=== PATIENT | male | born 1955 | race Caucasian/White ===

== ENCOUNTER → 2019-03-03 11:19 | Outpatient (CLI) | payer MEDICARE ==
--- NOTE | 2019-03-04 15:34 | ST ---
PATIENT:NICOLÁS LACY MEDICAL RECORD: [id number] SEX: M LOCATION:[facility] ORDER #: ADMISSION DATE: 03/03/19 AGE OF PATIENT: 64 REFERRING PHYSICIAN: INTERPRETING PHYSICIAN: ADEOLA LAWRENCE MD DATE OF SERVICE: 03/03/2019 PROCEDURE: Nuclear stress test. INDICATIONS: Angina, shortness of breath, hypertension, diabetes. He was exercised on standard Lexiscan protocol with 28 mCi of sestamibi injected at peak stress, 9 mCi used previously for rest images. FINDINGS: Gated SPECT reveals a preserved ejection fraction of 61%. However, there is decreased thickening and brightening throughout the inferior segments. SPECT imaging: Cardiolite was used as myocardial perfusion agent. There is a fixed perfusion defect inferiorly compatible with previous inferior myocardial infarction. No evidence of reversible ischemia. The remaining segments are with homogeneous uptake at rest and stress. OVERALL IMPRESSION: This is an abnormal, but stable nuclear stress test showing only a previous inferior myocardial infarction, no ongoing ischemia. Gated SPECT reveals preserved ejection fraction at 61%. In this patient with ongoing symptomatology, the current scan does suggest the presence of hemodynamically significant coronary artery disease. Standard medical management and treatment of the coronary artery disease with cardiac risk factors. If symptomatology continues, we will proceed with coronary angiography. TRANSINT:[id number] Voice Confirmation ID: [id number] DOCUMENT ID: [id number] ADEOLA LAWRENCE MD at 1534 CC: CHARLEE VILLEDA [id number] DICTATION DATE: 03/03/19 2145 WET SUIT GLUER: 03/04/19 0111 DEP CLI 03/03/19 [facility] [address] [place] [address]
== END | disposition home or self-care (01) ==
LOC: D.HCCECHO 11:19 → D.HCCARDIO 11:30
PROVIDERS: ATTEND Internal Medicine Interventional Cardiology
DX: I20.9 Angina pectoris, unspecified (principal)

== ENCOUNTER 2019-03-21 11:16 | Outpatient (CLI) | payer MEDICARE ==
[~2019-03-21] VITALS: Ht 180.3 cm; Wt 75.0 kg
--- NOTE | ~2019-03-21 | HEMODYNAMI ---
PATIENT:NICOLÁS LACY MEDICAL RECORD: [id number] : 51 LOCATION:[facility] ADMISSION DATE: 03/21/19 Generatedon:03/21/201916:14 Patient name: NICOLÁS LACY Patient #: [id number] SSN: [id number] : 1955 Date of study: 03/21/2019 Page: Of Hemodynamic Procedure Report Patient Data Patient Demographics Procedure consent was obtained First Name: NICOLÁS Gender: Male Last Name: BAMBI : 1955 Patient #: [id number] Age: 64 year(s) Race: SSN: [id number] Additional ID: [id number] Contact details [address]: [address] [place] [address] State: [place] City: [place] Zip code: [address] Past Medical History Allergies Allergen Reaction Date Comments Reported Other allergy 03/21/2019 celecoxib(from celebrex) Admission Admission Data Admission Date: 03/21/2019 Admission Time: 11:16 Arrival Date: 03/21/2019 Arrival Time: 13:30 Admit Source: Other Insurance Payor: Medicare Room #: AnaCL06 [facility] #: [id number] Height (in.): 70.87 BSA: 1.94 (m2) Height (cm.): 180 BMI: 23.15 (kg/m2) Weight (lbs.): 165.35 Weight (kg.): 75 Lab Results Lab Result Date: 03/21/2019 Lab Result Time: 0:00 Biochemistry Name Units Result Min Max BUN mg/dl 15 --(--*-)-- 7 18 Creatinine mg/dl 1 --(--*-)-- 0.6 1.3 eGFR ml/min 79.29281 *-(----)-- 90 120 NONAFRICAN CBC Name Units Result Min Max Hemoglobin g/dl 17 --(---*)-- 13.5 17.5 Procedure Procedure Types Cath Procedure Diagnostic Procedure [facility] w/Coronaries Sedation Charges Moderate Sedation up to 15 minutes Procedure Description Procedure Date Procedure Date: 03/21/2019 Procedure Start Time: 15:54 Procedure End Time: 16:07 Procedure Staff Name Function Елена Malik RT Scrub Castillo Hewitt MD Performing Physician Moni Quinones RT Monitor Maribel Hall RT Monitor Chava Membreno RN Nurse Indication Angina Procedure Data Cath Procedure Fluoroscopy Diagnostic fluoroscopy Total fluoroscopy Time: 1.5 time: 1.5 min min Diagnostic fluoroscopy Total fluoroscopy dose: 421 dose: 421 mGy mGy Contrast Material Contrast Material Type Amount (ml) Isovue 300 57 Entry Location Entry Primary Successful Side Size Upsize Upsize Entry Closure Hernández ccessful Closure Location (Fr) 1 (Fr) 2 (Fr) Remarks Device Remarks Radial Right 6 Fr Mechanical artery Short Compression Estimated blood loss: 5 ml Diagnostic catheters Device Type Used For End Catheter Placement DIAGNOSTIC Phani 110cm Procedure 5Fr catheter ([id number]) Procedure Complications No complications Procedure Medications Medication Administration Route Dosage 0.9% NaCl I.V. 100 ml/hr Oxygen etCO2 Nasal cannula 2 l/min Heparin Flush Bag added to field 2 bags (1000units/500ml NS) Lidocaine 2% added to field 20 Radial Cocktail added to field 1 syringe (Verapamil 2mg/Nitro 400mcg/Heparin 1500units) Versed I.V. 2 mg Fentanyl I.V. 100 mcg Radial Cocktail I.A. 1 syringe (Verapamil 2mg/Nitro 400mcg/Heparin 1500units) Hemodynamics Rest BSA: 1.94 (m2) HGB: 17 (g/dl) O2 Consumption: Estimated: 231.64 (ml/min) O2 Cons umption indexed: Estimated:119.4 (ml/min/m) Heart Rate: 78 (bpm) Pressure Samples Time Site Value (mmHg) Purpose Heart Use Rate(bpm) 15:56 LV 155/-8,12 Snapshot 78 Gradients Valve Time Site Site Mean SEP/DFP Peak To Heart Use 1 2 (mmHg) (sec/min) Peak Rate (mmHg) (bpm) Aortic 15:56 LV AO 92 Snapshots Pre Cath Intra NCS Post Cath Vital Signs Time Heart Resp SPO2 etCO2 NIBP (mmHg) Rhythm Pain Sedation Rate (ipm) (%) (mmHg) Status Level (bpm) 15:45:35 67 20 94 19.5 179/91(148) NSR 0 (11) 10(A) , No pain 15:50:00 65 17 93 15 174/75(141) NSR 0 (11) 10(A) , No pain 15:54:20 67 17 94 28.5 169/87(137) NSR 0 (11) 10(A) , No pain 15:58:42 67 15 91 21 155/72(111) NSR 0 (11) 9(A) , No pain 16:02:58 69 15 90 30 156/75(111) NSR 0 (11) 10(A) , No pain 16:07:14 68 15 91 29.2 156/76(125) NSR 0 (11) 10(A) , No pain Medications Time Medication Route Dose Verified Delivered Reason Notes Effectiveness by by 15:43:32 0.9% NaCl I.V. 100 Chava Chava Per ml/hr Haseeb Membreno physician RN RN 15:43:42 Oxygen etCO2 2 l/min Chava Chava for low 02 Nasal Lorigan Lorigan sats cannula RN RN 15:44:03 Heparin Flush added 2 bags Chava Chava used for Bag to Lorigan Lorsteven procedure (1000units/500ml field ANGELES RN NS) 15:44:13 Lidocaine 2% added 20ml Chava Chava for local to vial Lorigan Lorigan anesthetic field ANGELES RN 15:44:24 Radial Cocktail added 1 Chava Chava used for (Verapamil to syringe Lorigan Lorigan procedure 2mg/Nitro field ANGELES RN 400mcg/Hepari 15:52:48 Versed I.V. 2 mg Chava Chava for sedation Haseeb Membreno RN RN 15:52:56 Fentanyl I.V. 100 mcg Chava Chava for sedation Haseeb Membreno RN RN 15:55:27 Radial Cocktail I.A. 1 Chava Castillo for (Verapamil syringe Haseeb Hewitt MD vasodilation 2mg/Nitro RN 400mcg/Hepari Procedure Log Time Note 15:33:40 Diagnostic Cath Status : Elective 15:34:31 Indication : Angina 15:34:46 Chava Membreno RN sent for patient. Start room use. 15:34:49 Time tracking: Regular hours (M-F 7:00 - 5:00) 15:34:57 Plan of Care:Hemodynamics will remain stable., Cardiac rhythm will remain stable., Comfort level will be maintained., Respiratory function will remain adequate., Patient/ family verbilizes understanding of procedure., Procedure tolerated without complication., Recovers from procedure without complications.. 15:35:06 Patient received from Pre/Post Procedure Room to CCL 2 Alert and oriented. Tansferred to table in Supine position. 15:36:06 Signed procedure consent form obtained from patient. 15:36:08 Warm blankets applied, and ryan hugger turned on for patient comfort. 15:36:10 Correct patient and procedure confirmed by team. 15:36:12 ECG and BP/O2 sat monitors applied to patient. 15:36:23 H&P Date Dictated: 03/21/2019 H&P Addendum completed by physician on day of procedure. (MUST COMPLETE FOR ALL OUTPATIENTS), New H&P dictated by physician.. 15:36:25 Pre-procedure instructions explained to patient. 15:36:26 Pre-op teaching completed and patient verbalized understanding. 15:36:30 Family in patients room. 15:36:34 Patient NPO since Midnight. 15:38:23 Patient allergic to Other allergycelecoxib(from celebrex) 15:38:51 Is patient on blood thinner?Yes 15:39:14 Is the patient allergic to Iodine/contrast media? No. 15:39:30 ACC The patient was administered the following blood thiners within the last 24 hours: ACCPlavix, this am. 15:40:19 Patient diabetic? Yes. 15:40:25 If diabetic: On Metformin? Yes, Thursday last dose 03-19-2019. 15:41:09 If on Metformin: Last Dose? 03/19/2019 15:41:15 ----Pre-sedation anethsthesia assessment.---- 15:41:21 Previous problem with sedation/anesthesia? No ? 15:41:25 Snore? Yes 15:41:27 Sleep apnea? No 15:41:30 Deviated septum? No 15:41:33 Opens mouth fully? Yes 15:41:35 Sticks out tongue? Yes 15:41:43 Airway obstruction? Yes copd 15:41:53 Dentures? No ? 15:42:07 Pre procedure: right posterior tibial pulse 1+ Palpable, but thready & weak; easily obliterated 15:42:16 Modified Oren's test Radial < 7 seconds 15:42:21 Patient pain scale 0/10 ?. 15:42:34 IV patent on arrival in left forearm with 0.9% NaCl at [facility]. :: Lab Result : eGFR NONAFRICAN 79.11208 ml/min :: Lab Result : Hemoglobin 17 g/dl : Lab Result : BUN 15 mg/dl : Lab Result : Creatinine 1 mg/dl 15::32 0.9% NaCl 100 ml/hr I.V. was administered by Chava Membreno RN; Per physician; Verbal order read back and verified. 15:: Lab results completed and on chart. 15:: Oxygen 2 l/min etCO2 Nasal cannula was administered by Chava Membreno RN; for low 02 sats; Verbal order read back and verified. 15:44:03 Heparin Flush Bag (1000units/500ml NS) 2 bags added to field was administered by Chava Membreno RN; used for procedure; Verbal order read back and verified. 15:44:08 Right Radial & Right Groin area was prepped with chlora-prep and draped in sterile fashion 15:44:10 Alarms reviewed by R. N. 15:44:11 Sharps counted by scrub and verified by R.N. 15:44:13 Lidocaine 2% 20ml vial added to field was administered by Chava Membreno RN; for local anesthetic; Verbal order read back and verified. 15:44:20 Physician arrived 15:44:21 --------ALL STOP TIME OUT------ 15:44:22 Final Timeout: patient, procedure, and site verified with staff and physician. All members of the team are in agreement. 15:44:24 Radial Cocktail (Verapamil 2mg/Nitro 400mcg/Heparin 1500units) 1 syringe added to field was administered by Chava Membreno RN; used for procedure; Verbal order read back and verified. 15:44:26 Right Radial & Right Groin site verified by team. 15:44:28 Vital chart was started 15:44:33 Fire Safety Assessment: A--An alcohol-based skin anteseptic being used preoperatively., C--Open oxygen or nitrous oxide is being used., D--An ESU, laser, or fiber-optic light is being used. 15:44:47 Physical assessment completed. ASA score P 2 - A patient with mild systemic disease as per Castillo Hewitt MD. 15:44:56 2) 60-89 Mildly reduced kidney function, and other findings (as for stage 1) point to kidney disease. 15:45:43 Maximum allowable contrast dose (3.7 X eGFR X 0.75)219 ml. 15:46:14 Sedation plan: IV Moderate Sedation Medication:Versed, Fentanyl 15:46:30 Use device set Radial Dx or PCI 15:46:33 ACIST Syringe (74358) opened to sterile field. 15:46:35 Medline Cath Pack ([id number]) opened to sterile field. 15:46:36 Bag Decanter (2002S) opened to sterile field. 15:46:37 ACIST Hand Control (99284) opened to sterile field. 15:46:38 ACIST Manifold (93130) opened to sterile field. 15:46:39 Tegaderm 4 x 4 (1626W) opened to sterile field. 15:46:40 MBrace Wrist Support ([id number]) opened to sterile field. 15:47:05 NEEDLE Cook 21G 4cm Radial (N23692) opened to sterile field. 15:47:10 EMERALD Guide Wire (332-571) opened to sterile field. 15:47:11 SHEATH 6FR RAIN (7696082) opened to sterile field. 15:52:48 Versed 2 mg I.V. was administered by Chava Membreno RN; for sedation; Verbal order read back and verified. 15:52:56 Fentanyl 100 mcg I.V. was administered by Chava Membreno RN; for sedation; Verbal order read back and verified. 15:53:54 Full Disclosure recording started 15:53:54 Procedure started. 15:54:14 Local anesthetic to right radial artery with Lidocaine 2% by Castillo Hewitt MD.INITIAL ACCESS ONLY 15:54:17 Zero performed for pressure channel P1 15:54:50 A 6 Fr Short sheath was inserted into the Right Radial artery 15:55:20 A DIAGNOSTIC Phani 110cm 5Fr catheter ([id number]) was advanced over the wire and used for Procedure. 15:55:27 Radial Cocktail (Verapamil 2mg/Nitro 400mcg/Heparin 1500units) 1 syringe I.A. was administered by Castillo Hewitt MD; for vasodilation; Verbal order read back and verified. 15:56:20 LV hemodynamics recorded. 15:56:27 LV gram done using PHILLIPS 15:57:18 EF : 45 % 15:57:27 RCA angiography performed. 15:57:59 LCA angiography performed. 15:59:51 ACCDominant side:Co-Dominant 16:01:52 Catheter removed. 16:02:50 ZEPHYR LARGE TR BAND (033061) opened to sterile field. 16:03:24 Sheath removed intact; hemostasis achieved with Mechanical Compression to the Right Radial artery. 16:03:31 Procedure ended.(Physican Out) 16:04:38 Fluoroscopy time 01.50 minutes. 16:04:44 Fluoroscopy dose: 421 mGy 16:04:44 Flurop Dose total: 421 16:04:55 Dose Area Product 20522 mGy/cm. 16:05:03 Contrast amount:Isovue 300 57ml. 16:05:06 Sharps counted by scrub and verified by R.N. 16:05:17 [place] band inflated with 11cc of air. 16:05:32 Maximum allowable dose exceeded? No. 16:05:42 Insertion/operative site no bleeding no hematoma. 16:06:06 Post Procedure Pulses reassessed and unchanged 16:06:18 Post-procedure physical assessment completed. ASA score P 2 - A patient with mild systemic disease as per Castillo Hewitt MD. 16:06:24 Post procedure rhythm: unchanged. 16:06:32 Estimated blood loss: 5 ml 16:06:35 Post procedure instruction explained to patient.Patient verbalizes understanding. 16:06:36 Patient needs reinforcement of post procedure teaching. 16:06:56 Procedure type changed to Cath procedure, Diagnostic procedure, LHC, LHC w/Coronaries, Sedation Charges, Moderate Sedation up to 15 minutes 16:06:58 Procedure and supply charges have been captured, reviewed, submitted and are correct. 16:07:08 Procedure Complication : No complications 16:07:45 Vital chart was stopped 16:07:46 See physician's report for complete and final results. 16:07:49 Report given to Pre/Post Procedure Room. 16:07:54 Patient transfered to Pre/Post Procedure Room with Stretcher. 16:07:57 Full Disclosure recording stopped 16:07:57 Procedure ended. 16:08:04 End room use (Document Last) 16:09:45 Arrival Date: 03/21/2019 1:30:00 PM 16:10:23 Insurance Payor : Medicare 16:10:34 Admit Source: Other 16:12:58 Patient Height : 70.87 inches 16:13:03 Patient Weight : 165.35 lbs Device Usage Item Name Manufacture Quantity Catalog Hospital Part Current Minima l Lot# / Number Charge Number Stock Stock Serial# Code ACIST Acist 1 [id number] [id number] 044110 [id number] 20 Syringe Medical (36018) Systems Inc Medline Medline 1 [id number] 175630 74771 863866 5 Cath Pack ([id number]) Bag Microtek 1 2001S 659385 28543 930849 5 Decanter Medical Inc. (2001S) ACIST Hand Acist 1 53442 225472 755143 798101 5 Control Medical (75431) Systems Inc ACIST Acist 1 62199 798576 144401 226954 5 Manifold Medical (01101) Systems Inc Tegaderm 4 3M 1 1626W 876150 250452 136471 5 x 4 (1626W) MBrace Advanced 1 140-0250-00 578084 60957 705191 5 Wrist Vascular Support Dynamics ([id number]) NEEDLE Cook Cook Medical 1 E49111 140423 159969 777260 5 21G 4cm Radial (K36119) EMERALD Cardinal 1 502-455 960820 436952 698064 5 Guide Wire Health (502455) SHEATH 6FR Cardinal 1 5396840 666460 8483627 039532 5 [facility] (4608956) DIAGNOSTIC Terumo 1 40-5023 997675 481737 589837 5 Phani 110cm 5Fr catheter (020222) ZEPHYR Cardinal 1 190444 864213 4894422 726974 5 LARGE TR Health BAND (211129) Signature Audit [place] Stage Time Signature Unsigned Intra-Procedure 03/21/2019 Maribel 4:13:30 PM Isabel RT(R) (CV) Intra-Procedure 03/21/2019 Chava 4:14:04 PM Haseeb ANGELES Intra-Procedure 03/21/2019 Castillo Hewitt MD 4:14:39 PM [facility] [address] [place] [address]
[2019-03-21] MEDS ORDERED: TOPROL XL50 MG PO (12:01)
[2019-03-21] MEDS ORDERED: NEURONTIN 300300 MG PO (12:02)
[2019-03-21] MEDS ORDERED: LISINOPRIL40 MG PO (12:02)
[2019-03-21] MEDS ORDERED: NORVASC10 MG PO (12:02)
[2019-03-21] MEDS ORDERED: PLAVIX75 MG PO (12:03)
[2019-03-21] MEDS ORDERED: LOVASTATIN10 MG PO (12:03)
[2019-03-21] MEDS ORDERED: GEMFIBROZIL600 MG PO (12:03)
[2019-03-21] MEDS ORDERED: HYDROCHLOROTH12.5 M1 PO (12:03)
[2019-03-21] MEDS ORDERED: VITAMIN D3400 UNI1 PO (12:04)
[2019-03-21] MEDS ORDERED: MAGNESIUM OXID420 MG PO (12:05)
[2019-03-21] MEDS ORDERED: CEREFOLIN TAB1 TAB PO (12:05)
[2019-03-21] MEDS ORDERED: FISH OIL 1,0001 CA1 PO (12:06)
[2019-03-21] MEDS ORDERED: METFORMIN HCL500 M1 PO (12:06)
[2019-03-21 12:40] VITALS: BP 163/78; BMI 23.0
[2019-03-21 13:03] LABS: ALT (SGPT) 17 U/L (10-68); CALC OSMOLALITY 266 mosm/kg (275-300); CALCIUM 10.6 mg/dL (8.5-10.1); CHLORIDE - SERUM 94 mmol/L (98-107); CHOL - HDL RATIO 5.2 ratio (2.3-4.9); CHOLESTEROL, TOTAL 219 mg/dL (0-200); GLUCOSE 111 mg/dL (74-106); HDL CHOLESTEROL 42 mg/dL (32-96); LDL CHOLESTEROL 151 mg/dL (0-100); LDL-HDL RATIO 3.6 ratio (1.5-3.5); SODIUM 132 mmol/L (136-145); TRIGLYCERIDE 131 mg/dL (30-200); UREA NITROGEN 15 mg/dL (7-18); eGFR NON AFRICAN AMERICAN 79 mL/min (90-120)
[2019-03-21 13:05] LABS: POTASSIUM - SERUM 3.8 mmol/L (3.5-5.1)
[2019-03-21 13:35] LABS: BASOPHILS 0.5 % (0-2); EOSINOPHILS 1.9 % (0-7); HEMATOCRIT 46.5 % (42.0-54.0); IMMATURE GRANULOCYTES 0.2 % (0-5); LYMPHOCYTES 20.9 % (15-50); MCH 33.1 pg (26.0-34.0); MCHC 36.6 g/dL (31.0-37.0); MCV 90.6 fL (80.0-100.0); MEAN PLATELET VOLUME 9.5 fL (7.4-10.4); MONOCYTES 6.2 % (2-11); NEUTROPHILS 70.3 % (40-80); PLATELET COUNT 216 10x3/uL (130-400); RBC 5.13 10x6/uL (4.20-6.10); RDW 12.7 % (11.5-14.5)
--- NOTE | 2019-03-21 16:25 | NUR ---
PT RECEIVED VIA STRETCHER FROM POLYMERIZATION ENGINEER POST PROCEDURE. PT DROWSY BUT AWAKE. PT DENIES PAIN OR DISCOMFORT. ZYPHER BAND AND IMMOBILIZER TO R WRIST, DRESSING CDI NO BLEEDING OR HEMATOMA NOTED. ARM PINK AND WARM, CAP REFILL BRISK. HR NSR RATE 69, BP 152/72, RR 22, O2 SAT 92 ON ROOM AIR. O2 PLACED AT 2L/NC. DR GRIFFITH AT BEDSIDE DISCUSSING PLAN OF CARE W PT AND FAMILY. CALL LIGHT IN REACH
--- NOTE | 2019-03-21 16:35 | NUR ---
DR. GROSSMAN AT BEDSIDE DISCUSSING W PT AND FAMILY PLAN OF CARE AND INFORMATION REGARDING CABG.
--- NOTE | 2019-03-21 16:45 | NUR ---
HOB ELEVEATED PER PT REQUEST. SANDWICH TRAY AND COFFEE SERVED. PT DENIES PAIN OR NAUSEA. HR, 75, BP 165/69, O2 SAT 93. Z BAND IN PLACE, NO BLEEDING OR HEMATOMA NOTED. CALL LIGHT IN REACH, AT BEDSIDE.
--- NOTE | 2019-03-21 17:15 | NUR ---
ZBAND AND IMMOBILIZER IN PLACE, NO BLEEDING OR SWELLING NOTED. ARM REMAINS PINK AND WARM, CAP REFILL BRISK. PT DENIES NEEDS AT THIS TIME.
--- NOTE | 2019-03-21 17:30 | NUR ---
IV REMOVED W CATH INTACT. MONITORS REMOVED. PT AMBULATED TO BR, VOIDING W/O DIFFICULITY.
--- NOTE | 2019-03-21 17:45 | NUR ---
DISCHARGE INSTRUCTIONS REVIEWED W PT AND FAMILY, QUESTIONS ANSWERED. THEY VERBALIZED UNDERSTANDING. REMAINING AIR REMOVED FROM Z BAND W/O BLEEDING OR SWELLING.
--- NOTE | 2019-03-21 17:59 | NUR ---
Z BAND REMOVED AND 2X2 AND TEGADERM DRESSING APPLIED. IMMOBILIZER PLACED BACK IN PLACE. PT DISCHARGED VIA WC TO DAUGHTER WAITING IN PRIVATE VEHICLE. PT HAD ALL BELONGINGS AND DISCHARGE PAPERS.
[2019-03-23 15:35] VITALS: Ht 180.3 cm; Wt 75.0 kg
== END 2019-03-21 18:00 | disposition home or self-care (01) ==
LOC: D.CATH 11:16 → D.CLR 12:18 → D.CATH 13:30
PROVIDERS: ATTEND Internal Medicine Cardiovascular Disease
DX: I25.110 Atherosclerotic heart disease of native coronary artery with unstable angina pectoris (principal); R94.30 Abnormal result of cardiovascular function study, unspecified; R06.02 Shortness of breath

== ENCOUNTER 2019-03-24 10:30 | Inpatient (IN) | payer MEDICARE, OTHER ==
[~2019-03-24] VITALS: Ht 180.3 cm; Wt 75.5 kg
[~2019-03-24 10:30] MED LIST: CEREFOLIN TAB1 TAB PO; FISH OIL 1,0001 CA1 PO; GEMFIBROZIL600 MG PO; HYDROCHLOROTH12.5 M1 PO; LISINOPRIL40 MG PO; LOVASTATIN10 MG PO; MAGNESIUM OXID420 MG PO; METFORMIN HCL500 M1 PO; NEURONTIN 300300 MG PO; NORVASC10 MG PO; PLAVIX75 MG PO; TOPROL XL50 MG PO; VITAMIN D3400 UNI1 PO
[2019-03-24] MEDS ORDERED: BENADRYL25 MG PO (11:09)
[2019-03-24] MEDS ORDERED: SLEEP AID25 M1 PO (11:09)
[2019-03-24] MEDS ORDERED: CENTRUM MEN'S1 EACH PO (11:10)
[2019-03-24 11:22] LABS: BASOPHILS 0.5 % (0-2); EOSINOPHILS 3.1 % (0-7); HEMATOCRIT 46.5 % (42.0-54.0); HEMOGLOBIN 16.4 g/dL (13.5-17.5); IMMATURE GRANULOCYTES 0.3 % (0-5); LYMPHOCYTES 29.2 % (15-50); MCH 33.1 pg (26.0-34.0); MCHC 35.3 g/dL (31.0-37.0); MCV 93.8 fL (80.0-100.0); MEAN PLATELET VOLUME 9.2 fL (7.4-10.4); NEUTROPHILS 60.9 % (40-80); PLATELET COUNT 228 10x3/uL (130-400); RBC 4.96 10x6/uL (4.20-6.10); RDW 12.9 % (11.5-14.5); WBC 9.5 10x3/uL (4.8-10.8)
[2019-03-24 11:26] LABS: INR 0.93 (0.85-1.17)
[2019-03-24 11:27] LABS: APTT 31.5 SECONDS (22.8-39.4)
[2019-03-24 11:41] LABS: ALKALINE PHOSPHATASE 93 U/L (46-116); ALT (SGPT) 17 U/L (10-68); BILIRUBIN - TOTAL 0.48 mg/dL (0.2-1.3); CALC OSMOLALITY 271 mosm/kg (275-300); CALCIUM 9.8 mg/dL (8.5-10.1); CARBON DIOXIDE 31.4 mmol/L (21.0-32.0); CHLORIDE - SERUM 97 mmol/L (98-107); CHOLESTEROL, TOTAL 212 mg/dL (0-200); CREATININE - SERUM 0.9 mg/dL (0.6-1.3); GLUCOSE 108 mg/dL (74-106); PHOSPHOROUS 3.2 mg/dL (2.5-4.9); POTASSIUM - SERUM 4.7 mmol/L (3.5-5.1); PROTEIN - SERUM 7.4 g/dL (6.4-8.2); SODIUM 135 mmol/L (136-145); T4 THYROXIN - FREE 1.11 ng/dL (0.76-1.46); THYROID STIMULATING HORMONE 2.31 uIU/mL (0.36-3.74); UREA NITROGEN 15 mg/dL (7-18); URIC ACID 4.3 mg/dL (2.6-7.2); eGFR NON AFRICAN AMERICAN 90 mL/min (90-120)
[2019-03-24 12:10] LABS: APPEARANCE CLEAR (CLEAR); BILIRUBIN NEGATIVE (NEGATIVE); COLOR YELLOW (YELLOW); GLUCOSE NEGATIVE (NEGATIVE); KETONE NEGATIVE (NEGATIVE); NITRITE NEGATIVE (NEGATIVE); PROTEIN 2+ mg/dL (NEGATIVE); SPECIFIC GRAVITY 1.005 (1.005-1.020); UROBILINOGEN NORMAL (NORMAL)
[2019-03-24 12:12] LABS: BACTERIA NONE SEEN /hpf (NEGATIVE); EPITHELIAL CELLS NSEEN /hpf (0-5); RED CELLS - URINE NONE SEEN /hpf (0-5); WHITE CELLS - URINE NSEEN /hpf (NEGATIVE)
[2019-03-24 12:35] LABS: PLT FUNCT.(P2Y12) PLAVIX 72 PRU (194-418)
[2019-03-28] VITALS (48 sets, daily range): BP systolic 79–177; BP diastolic 45–86; BMI 25.1; BMI 24.1
--- NOTE | 2019-03-28 14:30 | NUR ---
PT ARRIVED FROM OR AROUND 1400. INTUBATED WITH ETT 8.0 23 AT LIP MIDLINE. CURRENT VENT SETTING . SIMV R14, PS 10, FIO2 40%, PEEP 5. WRIST RESTRAINTS APPLIED ON ARRIVAL. MIDSTERNAL INCISION WITH DRESSING C/D/I. SUBSTERNAL CT X 3 (2Y'D TOGETHER), [place] DRAIN IN PLACE. TPM WIRES COILED AND SECURED. RIGHT RADIAL KIERAN SECURED IN PLACE. RLE HARVEST SITES WRAPPED IN COBAND DRESSING. RIJ IN PLACE WITH DRESSING C/D/I. SEE IV FLOWSHEET FOR DRIPS. SAFETY MEASURES IN PLACE. WILL CONTINUE TO MONITOR.
[2019-03-28 14:34] LABS: INR 1.72 (0.85-1.17); PROTIME 19.6 SECONDS (11.6-15.0)
--- NOTE | 2019-03-28 14:38 | NUR ---
DR. GROSSMAN NOTIFIED THAT HR 60. ORDERED DOPAMINE AT 3MCG/KG/MIN.
--- NOTE | 2019-03-28 15:46 | NUR ---
DR. GROSSMAN NOTIFIED THAT ALMA ROSA DRAIN DOES NOT STAY COMPRESS. NO ACTION ORDER. WILL CONTINUE TO MONITOR.
--- NOTE | 2019-03-28 16:04 | NUR ---
DR. GROSSMAN NOTIFIED THAT PT IS STILL HYPOTENSIVE 84/52. ABENA 0.9MCG/KG/MIN, VASOPRESSIN 0.03UNITS/MIN, LEVOPHED 0.079MCG/KG/MIN. ORDERED TO INCREASE VASOPRESSIN TO 0.04 SET RATE, LEVOPHED TO 0.1MCG/KG/MIN AND STAT ABGS.
--- NOTE | 2019-03-28 16:08 | NUR ---
DR. GRSOSMAN ORDERED 500CC BOLUS AT THIS TIME TO BE GIVEN OVER 2HR.
--- NOTE | 2019-03-28 16:26 | NUR ---
DR. GROSSMAN NOTIFIED OF ABG RESULTS AND CURRENT BP OF 84/54. WANTS TO KEEP MAP GREATER THAN 55. NOTIFY HIM IF NEED TO INCREASE LEVOPHED DRIP. ASKED IF IT WAS OK TO START FENTANYL DRIP SINCE PT WAS NOT GOING TO BE EXTUBATED TO DAY. HE SAID NOT YET. ORDERED TO START PROPOFOL ONCE PT IS ABLE TO MOVE ALL EXTREMITIES.
[2019-03-28 16:55] LABS: PLT FUNCT.(P2Y12) PLAVIX 199 PRU (194-418)
--- NOTE | 2019-03-28 18:41 | NUR ---
BP 118/52, HR 70. DR. GROSSMAN NOTIFIED. ORDERED TO DECREASE VASOPRESSIN TO 0.02UNITS/MIN.
--- NOTE | 2019-03-28 19:00 | NUR ---
Received patient sedated in bed with eyes closed, assessment completed per flowsheet. Patient opens eyes to voice/follows instructions, no verbal response. ETT 8.0 @ 23cm secured. S1/S2 noted NSR on telemetry, rythmic and regular. Vent settings SIMV R-16 V-550 50% P-5 PS-10 with O2 sat 94%, coarse sounds with CT air leak audible bilateral upper and mid with diminished lower. Midline sternum/Substernal incision dressing CDI, no bleeding/drainage noted. CT x2 substernal to 20cm suction with air leak noted, small bloody drainage. Jez x1 with small bloody drainage, unable to maintain compressed with physician aware. Criticore secured, clear yellow urine noted. R radial A-line with good waveform, wrist protector in use. All pulses palpable with cap refill < 3 sec, skin warm/dry. Oral care provided, repositioned for comfort. No further needs at this time, see flowsheet for details. All VSS and will continue to monitor.
--- NOTE | 2019-03-28 21:00 | NUR ---
Family at bedside for visitation, discussed current status/ventilator use with all questions answered to satisfaction. Oral care/suctioning provided, repositioned for comfort. Reinforced CT dressing, small improvement with air leak noted. New orders received from Pulmonology, vent settings changed by RT. New settings A/C R-18 V-550 50% P-5. No further needs and will continue to monitor.
--- NOTE | 2019-03-28 23:00 | NUR ---
Reassessment completed per flowsheet, no changes noted. S1/S2 noted NSR on telemetry, rythmic and regular. Vent settings unchanged with O2 sat 92%, coarse sounds with CT air leak audible bilateral upper and mid with diminished lower. Midline sternum/Substernal dressing CDI, CT x2 with small air leak noted and bloody drainage. Jez x1 substernal with small bloody drainage, unable to maintain compressed. R radial A-line with good waveform, all pulses palpable with cap refill < 3 sec. Oral care/suctioning provided, repositioned for comfort. See flowsheet for details, all VSS and will continue to monitor.
[2019-03-29] VITALS (104 sets, daily range): BP systolic 94–143; BP diastolic 43–73; BMI 24.6
--- NOTE | 2019-03-29 01:00 | NUR ---
Patient sedated in bed on vent with eyes closed, no s/s of distress at this time. Substernal Jez x1 with scant bloody drainage, does not remain compressed. Oral care/suctioning provided, repositioned for comfort. No further needs and will continue to monitor.
--- NOTE | 2019-03-29 03:00 | NUR ---
Reassessment completed per flowsheet, no changes noted from previous assessment. S1/S2 noted NSR on telemetry, rythmic and regular. Vent settings unchanged from previous with O2 sat 96%, coarse lung sounds noted with CT air leak audible bilateral upper and mid with diminished lower. CT x2 substernal with small bloody drainage, air leak noted. Jez x1 substernal with scant bloody drainage, unable to keep compressed. R radial A-line with good waveform, wrist protector in use. All pulses palpable with cap refill < 3 sec, skin warm/dry. Oral care/suctioning provided, repositioned for comfort. See flowsheet for details, all VSS and will continue to monitor.
--- NOTE | 2019-03-29 03:05 | NUR ---
Levophed GTT pump changed from Mcg/Kg/Min to Mcg/Min for titration purposes.
--- NOTE | 2019-03-29 05:00 | NUR ---
Radiology at bedside, patient tolerated well. Slight increase in HR and BP during movement, returned to normal levels quickly after resting. Oral care/suctioning provided, repositioned for comfort. No further needs at this time, all VSS and will continue to monitor.
[2019-03-29 06:41] LABS: HEMATOCRIT 31.5 % (42.0-54.0); HEMOGLOBIN 10.9 g/dL (13.5-17.5); MCH 31.9 pg (26.0-34.0); MCHC 34.6 g/dL (31.0-37.0); MCV 92.1 fL (80.0-100.0); MEAN PLATELET VOLUME 9.6 fL (7.4-10.4); RBC 3.42 10x6/uL (4.20-6.10); RDW 12.9 % (11.5-14.5); WBC 21.3 10x3/uL (4.8-10.8)
[2019-03-29 06:52] LABS: ALBUMIN 2.3 g/dL (3.4-5.0); ANION GAP 10.9 mmol/L (8-16); BILIRUBIN - TOTAL 0.33 mg/dL (0.2-1.3); CALCIUM 7.1 mg/dL (8.5-10.1); CARBON DIOXIDE 27.8 mmol/L (21.0-32.0); CREATININE - SERUM 1.1 mg/dL (0.6-1.3); POTASSIUM - SERUM 3.7 mmol/L (3.5-5.1); PROTEIN - SERUM 4.4 g/dL (6.4-8.2)
--- NOTE | 2019-03-29 07:32 | NUR ---
0700 PT RECIEVED ALERT, ABLE TO FOLLOW COMMANDS WITH ALL EXTREMETIES AND NOD YES AND NO APPROPRIATELY TO QUESTIONS, ETT 8.0 23 AT THE LIP, AC VIA VENT, R IJ CVL DRESSING CDI WITH PLASMALYTE, DOPAMINE, ABENA, PROPOFOL, INSULIN AND LEVOPHED INFUSING, KCL TREATED IN BURETROL FROM EXISTING KCL BAG PER PROTOCOL, L AC PIV WITH ZINACEF INFUSING, R RADIAL A LINE WITH GOOD WAVEFORM, WRIST PROTECTOR IN PLACE, A LINE AND CVP ZEROED, MIDSTERNAL AND SUBSTERNAL DRESSINGS CDI WITH SUBSTERNAL TPM WIRES COILED TO CHEST, CTX3 WITH 2 Y'D TOGETHER, AIR LEAK PRESENT, BLOODY DRAINAGE, 20CM SUCTION, ALMA ROSA DRAIN WITH AIR LEAK, UNABLE TO STAY COMPRESSED, RECOMPRESSED, BLE HARVEST SITE DRESSINGS CDI, RLE COBAN FROM GROIN TO ANKLE, TEDS/SCDS ON LLE, PULSES PALPABLE, CRITICORE DRAINING YELLOW URINE, TEMP 97.3C BLANKETS REMOVED PT SAYS HE IS HOT 0730 DR GROSSMAN NOTIFIED OF CT OUTPUT 90ML FROM POSTERIOR WHICH IS 2 TUBES Y'D TOGETHER, CAME TO UNIT AND UPDATED ON PT, ORDERS TO WEAN DOPAMINE TO 2MCG
--- NOTE | 2019-03-29 08:36 | NUR ---
PAGED DR PLAZA TO CONFIRM UA ORDER HE HAD PREVIOUS UA, ORDERS TO CONTINUE WITH UA AND START WEANING VENT, PER DR GROSSMAN WEANING PROPOFOL AND CONFIRMED WITH DR PLAZA
--- NOTE | 2019-03-29 11:08 | NUR ---
ABGS KCL TREATED PER PROTOCOL FROM [facility] [place] TO EXTUBATE PER DR PLAZA, DR CASILLAS NURSES NOTIFIED
--- NOTE | 2019-03-29 11:21 | NUR ---
EXTUBATED AND RESTRAINTS REMOVED 1115
--- NOTE | 2019-03-29 12:50 | NUR ---
1215 REPORT RECIEVED AND CARE ASSUMED OF PATIENT.. PT IS AWAKE WITH FAMILY AT THE BEDSIDE.. SEE FLOW SHEET FOR FLUID TYPES AND RATES.. NTG IS BEING TITRATED FOR BP. FAMILY IS AT THE BEDSIDE AND CONVERING WITH PT.. 1230 K+ DRIP IN BURETROL COMPLETE AND TURNED OFF PLASMALYTE RATE INCREASED TO 100CC.... BS 153 AND INSULIN DRIP REMAINS AT 2UNITS PER HOUR.. 1240 DR PLAZA IN TO SEE PT.. 1300 HOURLY I AND O DONE
--- NOTE | 2019-03-29 13:51 | NUR ---
1345 PT C/O PAIN 1350 TYLENOL 2 TABS GIVEN...SWALLOWED WITHOUT DIFFICULTY.. FAMILY IS AT THE BEDSIDE
--- NOTE | 2019-03-29 14:49 | NUR ---
1345 DR GROSSMAN AT BEDSIDE.. SPEAKING WITH PT AND FAMILY.. ORDERS RECIEVED AND LUIS INPUTTING THEM 1400 BS 145 CONTINUE TO INFUSE 2 UNITS INSULIN PER HOUR.. NTG CONITNUES AT 7 CC/HR 1440 TORDOL GIVEN PER ORDER. AND 12,5 LOPRESSOR PO PIV IN LEFT AC DCd PER VO DR GROSSMAN
--- NOTE | 2019-03-29 19:00 | NUR ---
Received patient resting in bed with eyes open, assessment completed per flowsheet. S1/S2 noted NSR on telemetry, rythmic and regular. Breathing is shallow on 7L via NC with O2 sat 93%, coarse lung sounds noted RUL/RML with coarse/audible air leak STEVEN and diminished lower. CT x2 substernal to 20 cm suction with air leak noted, small bloody drainage. Jez substernal with small bloody drainage, does not remain compressed. Criticore secured, clear yellow urine noted. R radial A-line with good waveform, wrist protector in use. All pulses palpable with cap refill < 3 sec, generalized edema with skin warm/dry. L upper thigh/R leg harvest sites with dressing CDI, no bleeding/drainage noted. C/O incisional pain, PRN medication available and will provided on request. Repositioned for comfort, see flowsheet for details. All VSS and will continue to monitor.
--- NOTE | 2019-03-29 21:00 | NUR ---
HS meds given without difficulty, PRN pain medication provided at request. Family at bedside for visitation, discussed current status/treatment plan with all questions answered to satisfaction. Repositioned for comfort, no further needs and will continue to monitor.
--- NOTE | 2019-03-29 23:15 | NUR ---
Reassessment completed per flowsheet, no changes noted from previous assessment. S1/S2 noted NSR on telemetry, rythmic and regular. Breathing is shallow on 7L via HFNC with O2 sat 93%, coarse sounds RUL/RML and coarse/air leak audible STEVEN with diminished lower. Midline sternum/Substernal incision dressing CDI, no bleeding/drainage noted. CT x2 to 20 cm suction with air leak noted, bloody drainage. Jez substernal with scant bloody drainage, does not remain compressed. All pulses palpable with cap refill < 3 sec, skin warm/dry. Patient demonstrates weak cough/poor effeort on IS, c/o incisional pain preventing effort. Encouraged effort/explained need with stated understanding. See flowsheet for details, all VSS and will continue to monitor.
[2019-03-30] VITALS (57 sets, daily range): BP systolic 92–155; BP diastolic 43–79; Ht 180.3 cm; Wt 75.5 kg
--- NOTE | 2019-03-30 01:00 | NUR ---
Patient c/o unable to breath deep/use IS due to discomfort, encouraged/explained with patient stated understanding. Patient O2 sat 90% on 7L via HFNC, notified RT of possible need to place patient on BiPAP per orders. RT to evaluate, all VSS and will continue to monitor.
--- NOTE | 2019-03-30 02:10 | NUR ---
Patient c/o incisional pain preventing deep breathing, provided PRN medication at request.
--- NOTE | 2019-03-30 03:15 | NUR ---
Reassessment completed per flowsheet, no changes noted from previous assessment. S1/S2 noted Sinus Tach on telemetry, rythmic and regular. Breathing is shallow on 8L HFNC with O2 sat 91%, coarse lung sounds noted RUL/RML with coarse/audible air leak STEVEN with diminished lower. Midline sternum/substernal incision dressing CDI, no bleeding/drainage noted. CT x2 to 20 cm suction with air leak noted, small bloody drainage. Jez x1 with scant bloody drainage, does not stay compressed. L upper thigh/R leg harvest sites dressing CDI, no bleeding/drainage noted. All pulses palpable with cap refill < 3 sec, skin warm/dry. Repositioned for comfort, no further needs at this time. See flowsheet for details, all VSS and will continue to monitor.
[2019-03-30 05:45] LABS: MCH 31.7 pg (26.0-34.0); MCHC 33.9 g/dL (31.0-37.0); MCV 93.6 fL (80.0-100.0); MEAN PLATELET VOLUME 9.4 fL (7.4-10.4); RDW 13.2 % (11.5-14.5); WBC 17.9 10x3/uL (4.8-10.8)
[2019-03-30 06:00] LABS: HEMATOCRIT 24.8 % (42.0-54.0); HEMOGLOBIN 8.4 g/dL (13.5-17.5); RBC 2.65 10x6/uL (4.20-6.10)
[2019-03-30 06:20] LABS: ALBUMIN 2.2 g/dL (3.4-5.0); ALKALINE PHOSPHATASE 43 U/L (46-116); ALT (SGPT) 20 U/L (10-68); BILIRUBIN - TOTAL 0.52 mg/dL (0.2-1.3); CALC OSMOLALITY 287 mosm/kg (275-300); CALCIUM 7.5 mg/dL (8.5-10.1); CHLORIDE - SERUM 105 mmol/L (98-107); CREATININE - SERUM 0.9 mg/dL (0.6-1.3); POTASSIUM - SERUM 3.6 mmol/L (3.5-5.1); PROTEIN - SERUM 4.6 g/dL (6.4-8.2); SODIUM 141 mmol/L (136-145); UREA NITROGEN 18 mg/dL (7-18); eGFR NON AFRICAN AMERICAN 90 mL/min (90-120)
[2019-03-30 06:22] LABS: GLUCOSE 182 mg/dL (74-106)
--- NOTE | 2019-03-30 07:05 | NUR ---
SHIFT REPORT RECEIVED. PT UP IN CHAIR. RATED PAIN 3/10. ON 9L OF VIA HIGH FLOW NC. ALCARAZ NOTED ON RIGHT FOREARM. RIJ WITH PLASMOLYTE AT 30ML/HR AND NITRO AT 23.33MCG/MIN. CT X 2 TO 20CM SUCTION. CHAMBER FULL. CHAMBER CHANGED AT THIS TIME. LEFT ALMA ROSA DRAIN NOTED. WILL NOT REMAIN COMPRESSED. RLE HARVEST SITES DRESSING C/D/I. CALL LIGTH IN REACH. WILL CONTINUE TO MONITOR.
--- NOTE | 2019-03-30 08:40 | NUR ---
DR. GROSSMAN IN UNIT. ORDERED TO JEFE ALCARAZ. WANTS NITRO DRIP TO BE TURNED OFF. LOPRESSOR 25MG TAB GIVEN PER ORDERS. NORCO 10 GIVEN AT THIS TIME FOR PAIN. NO FURTHER NEED. WILL CONTINUE TO MONITOR.
--- NOTE | 2019-03-30 13:01 | NUR ---
SBP 150 AT THIS TIME. SCAR WITH DR. GROSSMAN NOTIFIED.
--- NOTE | 2019-03-30 15:00 | NUR ---
PT RESTING COMFORTABLY IN CHAIR. DENIES HAVING PAIN AT THIS TIME. NO ACUTE CHANGES FROM PREVIOUS ASSESSMENT. WILL CONTINUE TO MONITOR.
--- NOTE | 2019-03-30 17:05 | NUR ---
BLOOD GLUCOSE 138. NO ACTION NEEDED PER PROTOCOL. MEAL TRAY DELIVERED TO ROOM. CURRENT BP 141/66. PT DENIES PAIN. WILL CONTINUE TO MONITOR.
--- NOTE | 2019-03-30 17:32 | MORECARE ---
CASE MANAGEMENT DISCHARGE SUMMARY PATIENT: NICOLÁS LACY UNIT: [id number] ADM DATE: 03/28/19 AGE: 64 : [birth year] SEX: M ROOM/BED: [facility] AUTHOR: MAXWELL,DOC PHYSICIAN: REFERRING PHYSICIAN: LORRAINE GROSSMAN MD DATE OF SERVICE: 03/30/19 Discharge Plan Patient Name: NICOLÁS LACY Facility: [facility]:[place] : 1955 Planned Disposition: Home Anticipated Discharge Date: Discharge Date: Expected LOS: Initial Reviewer: [email or web address] Initial Review Date: 03/30/2019 Generated: 03/30/19 6:31 pm Comments DCP- Discharge Planning Updated by [email or web address]: Flor Cheema on 03/30/19 4:[address] Patient Name: NICOLÁS LACY Admission Status: Elective Accout number: [id number] Admission Date: 03-28-2019 : 1955 Admission Diagnosis: Attending: LORRAINE GROSSMAN Current LOS: 2 Anticipated DC Date: Planned Disposition: Home Primary Insurance: MEDICARE A & B Discharge Planning Comments: CM met with patient at bedside after explaining CM role and obtaining verbal consent. Patient lives at home with his Jackelyn where he is independent with his care and plans to return there upon discharge. Patient feels this would be a safe discharge. CM discussed availability / needs of home health and medical equipment. Patient denies any discharge needs at this time. Patient states he will have his family drive him home upon discharge. CM will continue to follow and assist as needed with discharge planning / needs. Reuse Technician: Flor Cheema DCPIA - Discharge Planning Initial Assessment Updated by [email or web address]: Flor Cheema on 03/30/19 5:30 pm * Is the patient Alert and Oriented? Yes * How many steps to enter\exit or inside your home? * PCP [facility] * [facility] * Preadmission Environment Home with Family * ADLs Independent * Equipment Cane * List name and contact numbers for known caregivers / representatives who currently or will assist patient after discharge: HAROON LACY - DAUGHTER- [phone] JACKELYN LACY - - [phone] * Verbal permission to speak to the caregivers and representatives has been obtained from the patient. Yes * Community resources currently utilized None * Additional services required to return to the preadmission environment? No * Can the patient safely return to the preadmission environment? Yes * Has this patient been hospitalized within the prior 30 days at any hospital? No Patient Name: NICOLÁS LACY Page [id number] at 1732 All edits/amendments must be made on the electronic document DICTATION DATE: 03/30/191730 TEAR DOWN MATCHER: JULIANN 03/30/191730 RPT#: [id number] [place] DATE: STATUS: ADM IN [facility] [address] [place] [address] END OF REPORT
--- NOTE | 2019-03-30 17:41 | NUR ---
CALL RECEIVED FROM DAUGHTER. PASSWORD VERIFIED "." BRIEF UPDATE GIVEN.
[2019-03-31] VITALS (25 sets, daily range): BP systolic 92–159; BP diastolic 44–105
[2019-03-31 05:10] LABS: HEMATOCRIT 26.7 % (42.0-54.0); HEMOGLOBIN 8.9 g/dL (13.5-17.5); MCH 31.4 pg (26.0-34.0); MCHC 33.3 g/dL (31.0-37.0); MCV 94.3 fL (80.0-100.0); MEAN PLATELET VOLUME 9.8 fL (7.4-10.4); RBC 2.83 10x6/uL (4.20-6.10); RDW 13.2 % (11.5-14.5); WBC 13.7 10x3/uL (4.8-10.8)
[2019-03-31 05:25] LABS: ALBUMIN 2.1 g/dL (3.4-5.0); ALKALINE PHOSPHATASE 49 U/L (46-116); ALT (SGPT) 20 U/L (10-68); BILIRUBIN - TOTAL 0.46 mg/dL (0.2-1.3); CALC OSMOLALITY 282 mosm/kg (275-300); CALCIUM 7.9 mg/dL (8.5-10.1); CARBON DIOXIDE 30.4 mmol/L (21.0-32.0); CHLORIDE - SERUM 102 mmol/L (98-107); CREATININE - SERUM 0.7 mg/dL (0.6-1.3); GLUCOSE 138 mg/dL (74-106); MAGNESIUM - SERUM 1.8 mg/dL (1.8-2.4); POTASSIUM - SERUM 3.8 mmol/L (3.5-5.1); PROTEIN - SERUM 4.9 g/dL (6.4-8.2); SODIUM 140 mmol/L (136-145); UREA NITROGEN 19 mg/dL (7-18); eGFR NON AFRICAN AMERICAN > 90 mL/min (90-120)
--- NOTE | 2019-03-31 08:36 | NUR ---
REPORT RECEIVED, SHIFT ASSESSMENT COMPLETE. PT AWAKE, WAS IN BED. HAD LIQUID BM JUST BEFORE SHIFT CHANGE AND SATS WERE LOW. NURSE PLACED ON BIPAP. HAD NOT BEEN ON ALL NIGHT. HAD EPISODE OF ELEVATED HR (SVT?) JUST BEFORE 4AM. NOW ON AMIODARONE GTT. WAS GIVEN BOLUS AND NOW CURRENTLY INFUSING AT 1MG/HR (33.3ML) PT HAS BEEN ASSISTED UP TO THE CHAIR AT BEDSIDE, PLACED ON 8L HF. TOLERATED MOVE WELL. HAS BEEN GIVEN BREAKFAST TRAY.
--- NOTE | 2019-03-31 10:11 | NUR ---
PT HAS BEEN CLEANED UP FROM ANOTHER LOOSE STOOL. MORNING MEDICATIONS HAVE BEEN PROVIDED. AT BEDSIDE.
--- NOTE | 2019-03-31 11:05 | NUR ---
PT LUNG SOUNDS MUCH BETTER AT REASSESSMENT FROM SHIFT ASSESSMENT. HAD BEEN ENCOURAGED TO COUGH/DEEP BREATHE AND USE INCENTIVE SPIROMETERY. WAS ABLE TO COUGH UP LARGE AMOUNTS OF FLEGM MULTIPLE TIMES WITH HIS EXERCISES.
--- NOTE | 2019-03-31 12:31 | NUR ---
Nutrition Follow-up: POD 3 CABG. Pt reports tolerating PO intake with improvement in appetite. Loose stool this AM; Colace not given. Diet: Diabetic PO intake: 5-10% yesterday; better today Wt: 177# Labs noted: Glu 138, Ca 7.9, Alb 2.1 Meds noted: Glucophage, Humulin, Senokot, Colace Continue current diet as tolerated. Plush food preferences within diet restrictions. RD following.
--- NOTE | 2019-03-31 13:30 | TEE ---
PATIENT:NICOLÁS LACY MEDICAL RECORD: [id number] LOCATION:[place] [address] AGE OF PATIENT: 64 ADMISSION DATE: 03/28/19 SEX: M REFERRING PHYSICIAN: INTERPRETING PHYSICIAN: ADEOLA NEGRETE MD TRANSESOPHAGEAL ECHOCARDIOGRAM Date: 03/28/19 EVON CHARGE Y INDICATIONS: PREMEDICATIONS: PATIENT'S RESPONSE PROCEDURE DOPPLER MEASUREMENTS: LVIT LA 3.3 PA RA LVOT RVOT Asc. Ao AV Gradient Peak AV Mean AV Area MV Gradient Peak MV Mean MV Area INTERPRETATION: Doppler: 2-D: COLOR FLOW DOPPLER NORMAL SALINE STUDY: MISCELLANOUS: DIAGNOSIS: PLAN: Target Worker:1 Dr. Negrete Greenskeeper Supervisor: Haleigh KEE COMMENTS: PACS DATE OF SERVICE: 03/28/2019 PROCEDURE: Transesophageal echo evaluation of valvular structures during bypass surgery. FINDINGS: 1. Left ventricular chamber size is within normal limits. Left ventricular systolic function is normal at 60%. 2. Left atrium, right atrium, and right ventricular chamber sizes are within TRANSESOPHAGEAL ECHOCARDIOGRAM REPORT [id number] MONICA LACY normal limits. 3. Valvular structures have normal structure and motion. 4. Doppler interrogation reveals only trace mitral regurgitation. No other valvular insufficiency or stenosis. 5. No evidence of pericardial effusion or left ventricular thrombus. TRANSINT:[id number] Voice Confirmation ID: [id number] DOCUMENT ID: [id number] at 1330 CC: [id number] DICTATION DATE: 03/29/19 1209 PAINTER: 03/30/19 0623 ADM IN [place] [id number] [place] [address]
--- NOTE | 2019-03-31 13:46 | OP ---
PATIENT NAME: NICOLÁS LACY MEDICAL RECORD: [id number] :[birth year] LOCATION:[facility] ADMISSION DATE:03/28/19 SURGEON: AZAEL GROSSMAN MD DATE OF OPERATION: 03/28/2019 SURGEON: Azael Grossman MD AIRBRUSH ARTIST PHOTOGRAPHY: Javier Ramirez OPERATION PERFORMED: 1. Coronary artery bypass graft times 4 (left internal mammary to LAD, reverse saphenous vein graft from aorta to a second obtuse marginal, from side of the saphenous vein graft to the first obtuse marginal additionally, aorta to right coronary artery). 2. Endoscopic saphenous vein harvest. 3. Left lower lobe wedge resection. 4. Mechanical pleurodesis. PREOPERATIVE DIAGNOSIS: Coronary artery disease. POSTOPERATIVE DIAGNOSES: 1. Coronary artery disease. 2. Severe bullous emphysema including left apical bulla. ANESTHESIA: General endotracheal anesthesia. ESTIMATED BLOOD LOSS: Total cardiopulmonary bypass with Cell Saver retransfusion, 1 unit platelets. COMPLICATIONS: None. SPECIMENS: Left lower lobe wedge resection, benign lymphoid reactive tissue. CONDITION: Stable. COMPLICATIONS: None. DISPOSITION: CV ICU. OPERATIVE FINDINGS: 1. Transesophageal echocardiography with normal contractility before and after cardiopulmonary bypass. 2. Small greater saphenous vein from the mid thigh distally on the right and on the left, a longer section of reasonable caliber vessel, but also smaller from the mid thigh. So endoscopic vein harvest on the right lower extremity with the vein harvested down to the mid calf and on the left lower extremity two bridging incisions to remove saphenous vein from the calf. 3. Severe bullous emphysema and hyperexpanded lungs. Multiple nodules palpable as seen on the preoperative CT scan, some of which were small and clearly calcified, but 2 soft nodules were resected with frozen section returning lymphoid tissue, mechanical pleurodesis of the left chest. 4. Left internal mammary artery was a good conduit. The LAD was 2.0 mm and deep in the epicardial fat. 5. First obtuse marginal 1.5 mm vessel with severe disease. A smaller caliber portion of vein was used for this vein graft. There was severe competitive flow OPERATIVE REPORT [id number] NICOLÁS LACY in this vessel with back flow prior to the [id number] anastomosis to the second obtuse marginal after removing the cross clamp. 6. Second obtuse marginal 1.5 mm vessel with severe disease. 7. The posterior descending artery was small and diseased throughout as well as the ongoing right coronary artery, so the anastomosis was to the distal right coronary artery, which was a 2.0-mm vessel with severe disease. OPERATIVE INDICATION: Multivessel coronary artery disease, symptomatic. PROCEDURE IN DETAIL: The patient was brought to the operative suite. General anesthesia was obtained. The patient was prepped and draped. Greater saphenous vein was harvested from the right lower extremity utilizing endoscopic technique. Side branches were divided with electrocautery. Vessels ligated proximally and distally and removed. Side branches were tied. The left leg, two bridging incisions were made. Side branches were clipped. Vessel was ligated proximally and distally, and removed and again side branches were tied. Later, the legs were closed. Median sternotomy incision was made. Subcutaneous tissue was divided by electrocautery. Sternum was divided with a saw. The left hemisternum was elevated. Left pleural cavity was entered. Bullous disease was encountered. Palpation of the lingula revealed no easily biopsy available lesions, but some calcified lesions and two softer lesions in the left lower lobe were grasped and a stapling device used for removal. Mechanical pleurodesis was performed. Left internal mammary artery and vein was taken down as a pedicle graft. Sternal retractor was placed. Pericardium was opened. Heparin was given. Aorta was cannulated. Dual stage venous cannula was inserted. The Internal mammary clipped distally and made ready for anastomosis. Activated clotting time was appropriately elevated. The patient was placed on cardiopulmonary bypass. Sites for distal anastomosis were selected. The patient's temperature was allowed to drift downwardly. Antegrade cardioplegia cannula was inserted. Crossclamp was placed. Cardioplegia was given antegrade and this was repeated at 15-minute intervals including down the completed vein graft. Distal anastomosis was performed in standard technique. Proximal anastomosis with single cross-clamp technique. After restoring the flow, a single vein to vein proximal anastomosis and with the patient in a full sinus rhythm, weaned from cardiopulmonary bypass and was stable. The patient was decannulated. The cannula sites were oversewn. Protamine was given. Thorough irrigation was undertaken. Hemostasis was assured. The grafts lay appropriately. A drain was placed in the mediastinum and both pleural cavities. The left chest was evacuated and irrigated. The internal mammary harvest site was inspected for bleeding. Pericardial fat was loosely reapproximated. Ventricular pacing wires were placed. Sternum was closed with wires. Fascia was closed. Subcutaneous tissue was closed. Skin was closed. Dermabond was placed. The needle and sponge counts reported correct and the patient was taken to ICU in stable condition with you. TRANSINT:[id number] Voice Confirmation ID: [id number] DOCUMENT ID: [id number] OPERATIVE REPORT [id number] NICOLÁS LACY, AZAEL Frances MD at 1346 CC: Daniella VILLEDA JEFFREY [id number] DICTATION DATE: 03/28/19 1435 ANIMAL BREEDER: 03/28/19 2324 ADM IN [facility] [address] [place] [address]
--- NOTE | 2019-03-31 17:04 | NUR ---
PT CURRENTLY RESTING IN BED AFTER CHEST TUBES HAVE BEEN REMOVED. DENIES PAIN, DENIES NEEDS. AT BEDSIDE. CALL LIGHT IN REACH.
--- NOTE | 2019-03-31 17:47 | NUR ---
BLOOM CATHETER REMOVED. TIP INTACT. PT ASSISTED UP TO CHAIR. DINNER TRAY PROVIDED. DENIES ANY ADDITIONAL NEEDS. AT BEDSIDE. CALL LIGHT IN REACH
--- NOTE | 2019-03-31 19:25 | NUR ---
Received patient sitting up in chair at bedside, assessment completed per flowsheet. Patient AO x4, calm and cooperative. S1/S2 noted NSR on telemetry, rythmic and regular. Breathing is shallow on 7L via HFNC with O2 sat 95%, lung sounds clear bilateral upper and mid with diminished lower. L substernal Jez x1 with small serosanguinous drainage. Midsternal/Substernal incision dressing CDI, no bleeding/drainage noted. Abdomen is round/soft with bowel sounds active x4, non-tender. Patient utilizes urinal jug, small yellow urine noted. All pulses palpable with cap refill < 3 sec, skin warm dry with slight weakness noted BLE. Patient states incisional pain 1/10 post medication, denies further needs. See flowsheet for details, all VSS and will continue to monitor.
--- NOTE | 2019-03-31 23:00 | NUR ---
Reassessment completed per flowsheet, no changes noted from previous assessment. S1/S2 noted NSR on telemetry, rythmic and regular. Breathing is shallow on 5L via HFNC with O2 sat 94%, lung sounds clear bilateral upper and mid with diminished lower. Midsternal/Substernal incision dressing CDI, no bleeding/drainage noted. L substernal Jez x1 with small serosanguinous drainage noted, dressing CDI. All pulses palpable with cap refill < 3 sec, skin warm/dry. Denies pain or other needs at this time, see flowsheet for details. All VSS and will continue to monitor.
[2019-04-01] VITALS (24 sets, daily range): BP systolic 130–174; BP diastolic 54–89
--- NOTE | 2019-04-01 00:10 | NUR ---
Patient stated need to have BM, ambulated to bathroom with standby assist. Large liquid BM noted, cleaned and returned to bed.
--- NOTE | 2019-04-01 01:00 | NUR ---
Patient resting in bed with eyes closed, no s/s of distress at this time. Denies pain or other needs at this time, all VSS and will continue to monitor.
--- NOTE | 2019-04-01 03:00 | NUR ---
Reassessment completed per flowsheet, no changes noted from previous assessment. S1/S2 noted NSR on telemetry, rythmic and regular. Breathing is shallow on 5L via HFNC with O2 sat 92%, lung sounds clear bilateral upper and mid with diminished lower. Midsternal/Substernal incision dressing CDI, no bleeding/drainage noted. L substernal Jez x1 with small serosanguinous drainage, dressing CDI. All pulses palpable with cap refill < 3 sec, skin warm/dry. Denies pain or other needs at this time, see flowsheet for details. All VSS and will continue to monitor.
[2019-04-01 06:26] LABS: HEMATOCRIT 26.7 % (42.0-54.0); HEMOGLOBIN 9.1 g/dL (13.5-17.5); MCH 31.6 pg (26.0-34.0); MCHC 34.1 g/dL (31.0-37.0); MCV 92.7 fL (80.0-100.0); MEAN PLATELET VOLUME 9.9 fL (7.4-10.4); RBC 2.88 10x6/uL (4.20-6.10); RDW 13.2 % (11.5-14.5); WBC 11.8 10x3/uL (4.8-10.8)
[2019-04-01 06:35] LABS: ALBUMIN 2.1 g/dL (3.4-5.0); ALKALINE PHOSPHATASE 58 U/L (46-116); ALT (SGPT) 23 U/L (10-68); CALC OSMOLALITY 269 mosm/kg (275-300); CALCIUM 8.1 mg/dL (8.5-10.1); CARBON DIOXIDE 27.7 mmol/L (21.0-32.0); CHLORIDE - SERUM 97 mmol/L (98-107); CREATININE - SERUM 0.8 mg/dL (0.6-1.3); GLUCOSE 132 mg/dL (74-106); POTASSIUM - SERUM 3.6 mmol/L (3.5-5.1); PROTEIN - SERUM 5.4 g/dL (6.4-8.2); SODIUM 133 mmol/L (136-145); UREA NITROGEN 17 mg/dL (7-18); eGFR NON AFRICAN AMERICAN > 90 mL/min (90-120)
--- NOTE | 2019-04-01 10:30 | NUR ---
IV STARTED WITH 2O G ON 1ST ATTEMPT IN R VENTRAL FOREARM. R IJ DC'D. MANUAL PRESSURE HELD X 3 MIN AND DRESSED WITH 2X2 AND TEGADERM.
--- NOTE | 2019-04-01 19:20 | NUR ---
REC'D PT RESTING IN BED WATCHING TV, AWAKE, ALERT, AND ORIENTED X 4, RIGHT FOREARM PIV SALINE LOCKED, MIDSTERNAL INCISION CDI, SUBSTERNAL DRSG CDI TO PREVIOUS CT INSERTION SITES AND TEMP P/M WIRE, LEFT SUBSTERNAL ALMA ROSA DRAIN COMPRESSED WITH SEROSANGUINOUS DRAINAGE, RIGHT AND LEFT UPPER THIGH HARVEST SITES, CDI, NO REDNESS OR DRAINAGE, PT DENIES NEEDS, SR UP X 2, BED IN LOW POSITION, CALL LIGHT IN REACH.
--- NOTE | 2019-04-01 20:35 | NUR ---
EVENING MEDS GIVEN ORDERED, AT BS, UPDATE GIVEN AND QUESTIONS ANSWERED, PERCOCET GIVEN FOR COMPLAINTS OF INCISIONAL AND BACK PAIN RATING "6" ON 0-10 PAIN SCALE, BP ELEVATED, WILL CONT TO MONITOR CLOSELY FOR CHANGES.
--- NOTE | 2019-04-01 21:15 | NUR ---
PT COMPLAINS OF BEING COLD, WARM BLANKET PROVIDED, FAMILY REMAINS AT BS
--- NOTE | 2019-04-01 23:10 | NUR ---
REASSESSMENT COMPLETED, PT ASSISTED UP TO SIDE OF BED TO VOID, VOIDED 200CC WILNER COLORED URINE, O2 SAT DECREASED TO 88% WHILE UP ON SIDE OF BED, ASSISTED BACK TO BED AND REPOSITIONED FOR COMFORT, PT REPORTS PAIN PILL "HELPED", BP IMPROVED, WILL CONT TO MONITOR FOR CHANGES.
[2019-04-02] VITALS (24 sets, daily range): BP systolic 104–165; BP diastolic 48–74
--- NOTE | 2019-04-02 01:30 | NUR ---
PT ASSISTED UP ON SIDE OF BED TO VOID, VOIDED 100CC WILNER COLORED URINE, PT ASSISTED BACK TO BED AND REPOSITIONED UP IN BED FOR COMFORT, PT DENIES NEEDS, SR UP X 2 ,CALL LIGHT IN REACH.
--- NOTE | 2019-04-02 03:00 | NUR ---
REASSESSMENT COMPLETED, PT RESTING QUIETLY IN BED, AWAKE, ALERT, AND ORIENTED, PT DENIES PAIN, PT REPOSITIONED FOR COMFORT, VSS, ICE WATER PROVIDED ON REQUEST, PT DENIES FURTHER NEEDS.
--- NOTE | 2019-04-02 04:00 | NUR ---
PT AWAKE, ASSISTED UP ON SIDE OF BED TO VOID, COMPLETE CHG BATH AND LINEN CHANGE PROVIDED, PT ASSISTED OVER TO RECLINER, WARM BLANKET PROVIDED, BS TABLE, YANKEUR, AND CALL LIGHT IN REACH, CHAIR ALARM ON.
[2019-04-02 05:57] LABS: HEMATOCRIT 25.3 % (42.0-54.0); HEMOGLOBIN 8.4 g/dL (13.5-17.5); MCH 31.2 pg (26.0-34.0); MCHC 33.2 g/dL (31.0-37.0); MCV 94.1 fL (80.0-100.0); MEAN PLATELET VOLUME 9.3 fL (7.4-10.4); RBC 2.69 10x6/uL (4.20-6.10); RDW 13.2 % (11.5-14.5)
[2019-04-02 06:00] LABS: WBC 8.7 10x3/uL (4.8-10.8)
[2019-04-02 06:18] LABS: ALKALINE PHOSPHATASE 59 U/L (46-116); ALT (SGPT) 23 U/L (10-68); BILIRUBIN - TOTAL 0.56 mg/dL (0.2-1.3); CALC OSMOLALITY 268 mosm/kg (275-300); CALCIUM 8.3 mg/dL (8.5-10.1); CARBON DIOXIDE 28.7 mmol/L (21.0-32.0); CHLORIDE - SERUM 98 mmol/L (98-107); CREATININE - SERUM 0.9 mg/dL (0.6-1.3); GLUCOSE 94 mg/dL (74-106); POTASSIUM - SERUM 3.9 mmol/L (3.5-5.1); PROTEIN - SERUM 5.2 g/dL (6.4-8.2); SODIUM 134 mmol/L (136-145); UREA NITROGEN 14 mg/dL (7-18); eGFR NON AFRICAN AMERICAN 90 mL/min (90-120)
--- NOTE | 2019-04-02 06:30 | NUR ---
PT TAKEN TO RADIOLOGY FOR PA AND LATERAL.
--- NOTE | 2019-04-02 06:40 | NUR ---
RETURNED TO ROOM FROM RADIOLOGY, RIGHT FOREARM PIV UNABLE TO FLUSH, IV DC'D WITH CATH TIP INTACT, 20 GAUGE RESITED X 1 TO RIGHT LOWER FOREARM, PT TOLERATED WELL, PT DENIES NEEDS, WARM BLANKET PROVIDED, CALL LIGHT IN REACH.
--- NOTE | 2019-04-02 15:43 | MORECARE ---
CASE MANAGEMENT DISCHARGE SUMMARY PATIENT: NICOLÁS LCAY UNIT: [id number] ADM DATE: 03/28/19 AGE: 64 : 51 SEX: M [facility] AUTHOR: MAXWELL,DOC PHYSICIAN: REFERRING PHYSICIAN: LORRAINE GROSSMAN MD DATE OF SERVICE: 04/02/19 Discharge Plan Patient Name: NICOLÁS LACY Facility: [facility]:[place] : 1955 Planned Disposition: Home Anticipated Discharge Date: Discharge Date: Expected LOS: Initial Reviewer: [email or web address] Initial Review Date: 03/30/2019 Generated: 04/02/19 4:42 pm Comments DCP- Discharge Planning Updated by [email or web address]: Taty Howell on 04/02/19 2:[address] Order received to check O2 requirements for home and for nebulizer with duoneb qid. CM received order for a walk test, spoke to Samuel in respiratory who stated the nurse reported the patient will not be ready for discharge for a few days. Samuel stated he will wait [place] to [place] to do the walk test. Taty Howell RN,[facility] DCP- Discharge Planning Updated by [id number]: Flor Cheema on 03/30/19 4:[address] Patient Name: NICOLÁS LACY Admission Status: Elective Accout number: [id number] Admission Date: 03-28-2019 : 1955 Admission Diagnosis: Attending: LORRAINE GROSSMAN Current LOS: 2 Anticipated DC Date: Planned Disposition: Home Primary Insurance: MEDICARE A & B Discharge Planning Comments: CM met with patient at bedside after explaining CM role and obtaining verbal consent. Patient lives at home with his [place] where he is independent with his care and plans to return there upon discharge. Patient feels this would be a safe discharge. CM discussed availability / needs of home health and medical equipment. Patient denies any discharge needs at this time. Patient states he will have his family drive him home upon discharge. CM will continue to follow and assist as needed with discharge planning / needs. Editor News: Flor Cheema DCPIA - Discharge Planning Initial Assessment Updated by [email or web address]: Flor Cheema on 03/30/19 5:30 pm * Is the patient Alert and Oriented? Yes * How many steps to enter\exit or inside your home? * PCP CROW [facility] * [facility]acy [facility] * Preadmission Environment Home with Family * ADLs Independent * Equipment Cane * List name and contact numbers for known caregivers / representatives who currently or will assist patient after discharge: HAROON LACY - DAUGHTER- [phone] TRINIDAD LACY - - [phone] * Verbal permission to speak to the caregivers and representatives has been obtained from the patient. Yes * Community resources currently utilized None * Additional services required to return to the preadmission environment? No * Can the patient safely return to the preadmission environment? Yes * Has this patient been hospitalized within the prior 30 days at any hospital? No Last DP export: 03/30/19 4:32 p Patient Name: NICOLÁS LACY Page 11779 at 1543 All edits/amendments must be made on the electronic document DICTATION DATE: 04/02/19 154 [address]UNT WOMAN: JULIANN 04/02/191541 RPT#: [id number] DC DATE: STATUS: ADM IN [facility] [address] [place] [address] END OF REPORT
[2019-04-02 17:08] LABS: FUNGAL - ASP FLAVUS Negative (Neg:<1:1); FUNGAL - ASP NIGER Negative (Neg:<1:1); FUNGAL - ASPER FUMIGATUS Negative (Neg:<1:1)
--- NOTE | 2019-04-02 19:00 | NUR ---
SHIFT ASSESSMENT COMPLETE. PT IS A&O X4 WITH NO COMPLAINTS OF PAIN OR DISCOMFORT AT THIS TIME. PERRLA, 3 MM, BRISK REACTION TO LIGHT. GLASSES ON BEDSIDE TABLE. STRONG AND EQUAL HAND SENIOR ANDROID SOFTWARE ENGINEER AND FOOT PUMPS. HE DOES HAVE TREMORS. RR SHALLOW, CLEAR LUNG SOUNDS HEARD BILAT THROUGHOUT ALL LOBES. HIGH FLOW NC ON @ 2L/MIN. S1S2 AUDIBLE, HR 85 NSR SHOWING ON MONITOR. MIDSTERNAL DERSSING CDI. R NECK DRESSING CDI. SUBSTERNAL DRESSING CDI, TPM WIRES AND ALMA ROSA DRAIN NOTED. ALMA ROSA DRAIN HAS SEROSANG FLUID. R WRIST PIV S/L. ABD FLAT, NONTENDER TO TOUCH, BS ACTIVE X4. URINAL ON BEDSIDE TABLE, CLEAR YELLOW URINE NOTED. ALCON/SCDS ON AND FUNCTIONING. R&L TIGH HARVEST SITES REGIONAL ENVIRONMENTAL MANAGER, WELL APPROXIMATED. YAUNKER SUCTION AT BEDSIDE, WHITE SECRETIONS EXPELLED. CALL LIGHT IN REACH, BED IN LOWEST POSITION. HE DENIES ANY FURTHER NEEDS AT THIS TIME. VSS. WILL CONT WITH POC.
--- NOTE | 2019-04-02 19:58 | NUR ---
PRN APRESOLINE ADMIN, SBP 163-165. PIV FLUSHED, NO S/S OF INFILTRATION NOTED. WILL CONT CLOSE MONITORING.
--- NOTE | 2019-04-02 21:00 | NUR ---
FSBS 108, NO INSULIN ADMIN PER SLIDING SCALE. PO MEDS TAKEN WITHOUT DIFFICULTY. IS USE X10, 1000 ML INSPIRED, GOOD EFFORT. REPOSITONED FOR COMFORT. WILL CONT WITH POC.
--- NOTE | 2019-04-02 23:00 | NUR ---
REASSESSMENT COMPLETE. IS USE X10, 1500 ML INSPIRED. ASSISTED PT TO RESTROOM, GAIT STEADY. 1 LOOSE BM NOTED. COMPLETE LINEN CHANGE PROVIDED. PT BACK IN BED AT THIS TIME, REFRESHMENTS BROUGHT TO BEDSIDE. NO FURTHER NEEDS AT THIS TIME. VSS. CALL LIGHT IN REACH, WILL CONT WITH POC.
[2019-04-03] VITALS (24 sets, daily range): BP systolic 136–160; BP diastolic 55–76
--- NOTE | 2019-04-03 01:00 | NUR ---
REPOSITIONED FOR COMFORT. NO NEEDS AT THIS TIME. CALL LIGHT IN REACH. WILL CONT CLOSE MONITORING IN ICU.
--- NOTE | 2019-04-03 03:00 | NUR ---
REASSESSMENT COMPLETE, SEE FLOWSHEET FOR DETIALS. NO CHANGES IN PT CONDITION. HE IS SITTING UP IN BED DRINKING COFFEE. HE DENIES ANY PAIN OR DISCOMFORT. VSS. WILL CONT WITH POC. CALL LIGHT IN REACH.
--- NOTE | 2019-04-03 05:00 | NUR ---
PT RESTING PEACEFULLY WITH NO SIGNS OF ACUTE DISTRESS NOTED. VSS. WILL CONT WITH POC.
--- NOTE | 2019-04-03 05:45 | NUR ---
BACK FROM XRAY. PT TOLERATED WELL. HE IS SITTING UP IN THE CHAIR AT THIS TIME. REFRESHMENTS PROVIDED. LINEN CHANGE PROVIDED.
[2019-04-03 06:05] LABS: HEMATOCRIT 28.1 % (42.0-54.0); HEMOGLOBIN 9.4 g/dL (13.5-17.5); MCH 31.4 pg (26.0-34.0); MCHC 33.5 g/dL (31.0-37.0); MEAN PLATELET VOLUME 9.2 fL (7.4-10.4); RBC 2.99 10x6/uL (4.20-6.10); RDW 13.6 % (11.5-14.5); WBC 11.3 10x3/uL (4.8-10.8)
[2019-04-03 06:39] LABS: ALBUMIN 2.3 g/dL (3.4-5.0); ALKALINE PHOSPHATASE 115 U/L (46-116); BILIRUBIN - TOTAL 0.85 mg/dL (0.2-1.3); CALCIUM 8.8 mg/dL (8.5-10.1); CARBON DIOXIDE 28.8 mmol/L (21.0-32.0); CHLORIDE - SERUM 97 mmol/L (98-107); CREATININE - SERUM 0.9 mg/dL (0.6-1.3); GLUCOSE 103 mg/dL (74-106); POTASSIUM - SERUM 3.6 mmol/L (3.5-5.1); PROTEIN - SERUM 5.8 g/dL (6.4-8.2); SODIUM 134 mmol/L (136-145); eGFR NON AFRICAN AMERICAN 90 mL/min (90-120)
[2019-04-03 06:41] LABS: ALT (SGPT) 41 U/L (10-68); CALC OSMOLALITY 266 mosm/kg (275-300); UREA NITROGEN 10 mg/dL (7-18)
--- NOTE | 2019-04-03 19:00 | NUR ---
PT ASSESSMENT COMPLETED AT THIS TIME, NO CHANGES NOTED FROM NURSE REPORT, VSS, WILL CONT. TO MONITOR
--- NOTE | 2019-04-03 21:00 | NUR ---
PT GIVEN PO MEDS AT THIS TIME, NO COMPLAINTS OR PROBLEMS VOICED, VSS WILL CONT TO MONITOR
--- NOTE | 2019-04-03 23:00 | NUR ---
PT REASSESSMENT COMPLETED AT THIS TIME, NO CHANGES NOTED, WILL CONT. TO MONITOR FOR CHANGES IN PATIENT'S COND.
[2019-04-04] VITALS (23 sets, daily range): BP systolic 120–162; BP diastolic 53–78
--- NOTE | 2019-04-04 00:11 | NUR ---
RT CALLED ABOUT PATIENTS SPO2 NOT STAYING ABOVE 90, SHE ADVISED THAT SHE WOULD COME CHECK THE BIPAP AND ITS SETTING
--- NOTE | 2019-04-04 01:00 | NUR ---
PT RESTING WITH EYES CLOSED RESP EVEN NON LABORED, VSS, WILL CONT TO MONITOR PATIENT
--- NOTE | 2019-04-04 03:00 | NUR ---
PT REASSESSMENT COMPLETED AT THIS TIME, NO CHANGES NOTED, VSS
--- NOTE | 2019-04-04 05:00 | NUR ---
PT RESTING IN BED, NO CAHNGES NOTED, VSS, WILL MONITOR FOR CHANGES
[2019-04-04 06:11] LABS: HEMATOCRIT 27.4 % (42.0-54.0); HEMOGLOBIN 9.2 g/dL (13.5-17.5); MCH 31.7 pg (26.0-34.0); MCHC 33.6 g/dL (31.0-37.0); MCV 94.5 fL (80.0-100.0); RBC 2.9 10x6/uL (4.20-6.10); RDW 13.7 % (11.5-14.5)
[2019-04-04 06:33] LABS: ALBUMIN 2.3 g/dL (3.4-5.0); ALKALINE PHOSPHATASE 201 U/L (46-116); CALC OSMOLALITY 272 mosm/kg (275-300); CALCIUM 9.1 mg/dL (8.5-10.1); CARBON DIOXIDE 28.7 mmol/L (21.0-32.0); CHLORIDE - SERUM 97 mmol/L (98-107); GLUCOSE 118 mg/dL (74-106); POTASSIUM - SERUM 3.9 mmol/L (3.5-5.1); PROTEIN - SERUM 5.6 g/dL (6.4-8.2); SODIUM 136 mmol/L (136-145); UREA NITROGEN 12 mg/dL (7-18); eGFR NON AFRICAN AMERICAN 79 mL/min (90-120)
[2019-04-04 06:34] LABS: ALT (SGPT) 88 U/L (10-68)
--- NOTE | 2019-04-04 08:08 | NUR ---
REPORT RECEVIED FROM OFF GOING RN. SEE ASSESSMENT IN THE PTS FLOW SHEET. PT SITTING OOB. VSS. NSR ON THE MONITOR. RA. MIDSTERNAL AND SUBSTERNAL DRESSING C/D/I. R WRIST IV SL. LEFT SUBSTERNAL ALMA ROSA DRAIN NOTED TO HAVE SEROUSANG DRAINAGE. 80CC EMPTIED. BULB COMPRESSED. BLE HARVEST SITE INCISIONS COMPUTER FORENSIC EXAMINER AND WELL APPROXIMATED. NO S/SX OF INFECTION NOTED. PT INSTRUCED TO USE IS 10X'S/H. PT PULLS [phone]. BREAKFAST TRAY PROVIED. CALL LIGHT IN REACH. WILL CONT POC.
--- NOTE | 2019-04-04 09:21 | NUR ---
PHYSICAL THERAPY AMBULATED WITH THE PT WITHOUT O2. PT HAD A NORMAL AND STEADY GAIT BUT HAD TO TAKE MUTIPLE BREAKS. WHENEVER PT WAS ON THE MOVE, HIS O2 WOULD DROP TO 86% BUT ONCE HE STOOD STILL TO CATCH HIS BREATH, IT INCREASED TO 92%. PT BACK INTO HIS ROOM. AM MEDS GIVEN WITH NO ISSUES.
--- NOTE | 2019-04-04 09:39 | NUR ---
NUTRITION F/U CHART REVIEWED, PT UP IN CHAIR FINISHING BREAKFAST. 100% INTAKE. NO COMPLAINTS. WILL CONTINUE TO PROVIDE DIABETIC DIET, MONITOR PO INTAKE. RD FOLLOWING
--- NOTE | 2019-04-04 10:00 | NUR ---
DR MA AT THE PTS BEDSIDE. SEE ORDERS.
--- NOTE | 2019-04-04 11:09 | NUR ---
SUBSTERNAL DRESSING CHANGED. FULL CHD BATH GIVEN. PT REFUSED ORAL HYGINE PRODUCTS "MY TEETH ARE AT THE HOUSE.". PT TOLERATED WELL. WILL CONT POC.
--- NOTE | 2019-04-04 11:44 | NUR ---
DR VILLANUEVA AT THE PTS BEDSIDE. NO N.O AT THIS TIME.
--- NOTE | 2019-04-04 15:00 | NUR ---
REASSESSMENT COMPLETED. SEE FLOW SHEET.
--- NOTE | 2019-04-04 18:25 | NUR ---
PT BLOOD PRESSURE 166/56. DR FRANCESCA DEL RELA. ORDERS TO INCREASE LISINOPRIL TO 40MG QD AND GIVE 20MG PO NOW ALSO NORVASC 10MG QD AND TO GIVE A DOSE NOW.
--- NOTE | 2019-04-04 19:00 | NUR ---
PT ASSESSMENT COMPLETED AT THIS TIME, NO CHANGES NOTED FOR NURSE REPORT, VSS, WILL CONT. TO MONITOR
--- NOTE | 2019-04-04 21:00 | NUR ---
PT SITTING UP IN CHAIR TALKING WITH FAMILY, NO COMPLAINTS VOICED AT THIS TIME, VSS, WILL CONT. TO MONITOR
--- NOTE | 2019-04-04 23:57 | NUR ---
PT REASSESSMENT COMPLETED AT THIS TIME, NO CHANGES NOTED, WILL CONT. TO MONITOR, VSS
[2019-04-05] VITALS (15 sets, daily range): BP systolic 130–159; BP diastolic 59–76
--- NOTE | 2019-04-05 01:00 | NUR ---
PT RESTING WITH EYES CLOSED RESP EVEN NON LABORED, VSS, WILL CONT TO MONITOR
--- NOTE | 2019-04-05 03:00 | NUR ---
PT REASSESSMENT COMPLETED AT THIS TIME, NO CHANGES NOTED, VSS, WILL CONT. TO MONITOR
--- NOTE | 2019-04-05 05:12 | NUR ---
NO CHANGES NOTED, VSS, WILL CONT TO MONITOR
--- NOTE | 2019-04-05 07:00 | NUR ---
REPORT RECEVIED FROM THE OFF GOING RN. SEE ASSESSMENT IN THE PTS FLOW SHEET. PT SITTING OOB IN CHAIR. MIDSTERNAL AND SUBSTERNAL DRESSING C/D/I. L SUBSTERNAL ALMA ROSA DRAIN COMPRESSED WITH SEROUSANG DRAINAGE NOTED. BLE HARVEST SITES SUPERVISOR WARPING DEPARTMENT AND WELL APPROXIMATED. NO S/SX OF INFECTION NOTED. PT INSTRUCTED TO USE IS 10X'S/H. PULLS ABOUT 1250 ON IS. DENIES PAIN. BREAKFAST TRAY PROVIDED FOR THE PT. CALL LIGHT IN REACH. WILL CONT POC.
--- NOTE | 2019-04-05 08:58 | NUR ---
PT AMBULATED WITH PHYSICAL THEARPY ABOUT 250 FEET WITH NO O2. O2 DROPPED TO 88% A COULPLE OF TIMES BUT INCREASED BACK TO 93%. PT TOOK ABOUT 5 BREAKS WHILE WALKING. WHENEVER PT IS BACK IN HIS CHAIR, PT SATS 96%. VSS. CALL LIGHT IN REACH. WILL CONT POC.
--- NOTE | 2019-04-05 11:00 | NUR ---
REASSESSMENT COMPLETED. SEE FLOW SHEET.
[2019-04-05] MEDS ORDERED: PERCOCET 5-3251 TAB PO (12:56)
--- NOTE | 2019-04-05 14:30 | NUR ---
ALMA ROSA DRAIN AND TPM WIRES DC'D PER DR CASILLAS ORDERS.
[2019-04-05] MEDS ORDERED: AMIODARONE HCL200 MG PO (15:27)
[2019-04-05] MEDS ORDERED: ASPIRIN EC81 M1 PO (15:29)
[2019-04-05] MEDS ORDERED: COLACE100 MG PO (15:30)
--- NOTE | 2019-04-05 15:39 | MORECARE ---
CASE MANAGEMENT DISCHARGE SUMMARY PATIENT: NICOLÁS LACY UNIT: [id number] ADM DATE: 03/28/19 AGE: 64 : 51 SEX: M ROOM/BED: [facility] AUTHOR: MAXWELL,DOC PHYSICIAN: REFERRING PHYSICIAN: LORRAINE GROSSMAN MD DATE OF SERVICE: 04/05/19 Discharge Plan Patient Name: NICOLÁS LACY Facility: [facility]:[place] : 1955 Planned Disposition: Home Anticipated Discharge Date: Discharge Date: Expected LOS: Initial Reviewer: [id number] Initial Review Date: 03/30/2019 Generated: 04/05/19 4:38 pm DCP- Discharge Planning Updated by [email or web address]: Taty Howell on 04/02/19 2:[address] Order received to check O2 requirements for home and for nebulizer with duoneb qid. CM received order for a walk test, spoke to Samuel in respiratory who stated the nurse reported the patient will not be ready for discharge for a few days. Samuel stated he will wait [place] to do the walk test. Taty Howell RN,[facility] DCP- Discharge Planning Updated by [email or web address]: Flor Cheema on 03/30/19 4:[address] Patient Name: NICOLÁS LACY Admission Status: Elective Accout number: [id number] Admission Date: 03-28-2019 : 1955 Admission Diagnosis: Attending: LORRAINE GROSSMAN Current LOS: 2 Anticipated DC Date: Planned Disposition: Home Primary Insurance: MEDICARE A & B Discharge Planning Comments: CM met with patient at bedside after explaining CM role and obtaining verbal consent. Patient lives at home with his [place] where he is independent with his care and plans to return there upon discharge. Patient feels this would be a safe discharge. CM discussed availability / needs of home health and medical equipment. Patient denies any discharge needs at this time. Patient states he will have his family drive him home upon discharge. CM will continue to follow and assist as needed with discharge planning / needs. Fence Machine Operator: Flor Cheema DCPIA - Discharge Planning Initial Assessment Updated by [id number]: Flor Cheema on 03/30/19 5:30 pm * Is the patient Alert and Oriented? Yes * How many steps to enter\exit or inside your home? * PCP [facility] * [facility]acy [facility] * Preadmission Environment Home with Family * ADLs Independent * Equipment Cane * List name and contact numbers for known caregivers / representatives who currently or will assist patient after discharge: HAROON LACY - DAUGHTER- [phone] TRINIDAD LACY - - [phone] * Verbal permission to speak to the caregivers and representatives has been obtained from the patient. Yes * Community resources currently utilized None * Additional services required to return to the preadmission environment? No * Can the patient safely return to the preadmission environment? Yes * Has this patient been hospitalized within the prior 30 days at any hospital? No External Providers External Provider: Silvio Heredia Contact Date: Service Request Date: Service Type: Resolution: Reviewer: Comments: Last DP export: 04/02/19 2:43 Patient Name: NICOLÁS LACY Page 51070 at 1539 All edits/amendments must be made on the electronic document DICTATION DATE: 04/05/191537 LIQUOR GRINDER MILL OPERATOR: JULIANN 04/05/191537 RPT#: [id number] DC DATE: STATUS: ADM IN [facility] [address] [place] [address] END OF REPORT
--- NOTE | 2019-04-05 15:42 | NUR ---
PLAN FOR DISCHARGE. MANI QID PER DR VILLANUEVA. CASEMANAGMENT ORDREING NEBULIZER.
[2019-04-05] MEDS ORDERED: IPRAT-ALBUT 0.5-3 ML INH (16:25)
--- NOTE | 2019-04-05 16:46 | NUR ---
TONIE ANGELES SPEAKING WITH THE PT WITH THE AT THE BEDSIDE ABOUT DC INSTRUCTIONS.
--- NOTE | 2019-04-05 16:50 | MORECARE ---
CASE MANAGEMENT DISCHARGE SUMMARY PATIENT: NICOLÁS LACY UNIT: [id number] ADM DATE: 03/28/19 AGE: 64 : 51 SEX: M ROOM/BED: [facility] AUTHOR: FELICIA ARREOLA PHYSICIAN: REFERRING PHYSICIAN: LORRAINE GROSSMAN MD DATE OF SERVICE: 04/05/19 Discharge Plan Patient Name: NICOLÁS LACY Facility: [facility]:[place] : 1955 Planned Disposition: Home Anticipated Discharge Date: Discharge Date: Expected LOS: Initial Reviewer: [id number] Initial Review Date: 03/30/2019 Generated: 04/05/19 5:50 pm Comments DCP- Discharge Planning Updated by [email or web address]: Flor Cheema on 04/05/19 3:[address] Patient Name: NICOLÁS LACY Encounter No: [id number] : 1955 Primary Insurance: MEDICARE A & B Anticipated DC Date: Planned Disposition: Home External Planned Provider: : D/C IMM SIGNED 04/05 @ 1540 . CM set up nebulizer with [employer] [phone] and [facility] will deliver Nebulizer to patients room. Nursing calling in [email or web address] to patient pharmacy for 2 days before his shipment is delivered per [employer]. Patient didn't qualify for home 02 walk test patient's 02 sat 89-92%. CM will continue to follow and assist as needed with discharge planning / needs. DCP follow-up note: Patient and family in agreement with discharge plan. No changes to plan. Case management will follow and assist as needed. Flor Cheema DCP- Discharge Planning Updated by [id number]: Taty Howell on 04/02/19 2:[address] Order received to check O2 requirements for home and for nebulizer with duoneb qid. CM received order for a walk test, spoke to Samuel in respiratory who stated the nurse reported the patient will not be ready for discharge for a few days. Samuel stated he will wait for closer to [place] to do the walk test. Taty Howell RN,[facility] DCP- Discharge Planning Updated by [email or web address]: Flor Cheema on 03/30/19 4:[address] Patient Name: NICOLÁS LACY Admission Status: Elective Accout number: [id number] Admission Date: 03-28-2019 : 1955 Admission Diagnosis: Attending: LORRAINE GROSSMAN Current LOS: 2 Anticipated DC Date: Planned Disposition: Home Primary Insurance: MEDICARE A & B Discharge Planning Comments: CM met with patient at bedside after explaining CM role and obtaining verbal consent. Patient lives at home with his [place] where he is independent with his care and plans to return there upon discharge. Patient feels this would be a safe discharge. CM discussed availability / needs of home health and medical equipment. Patient denies any discharge needs at this time. Patient states he will have his family drive him home upon discharge. CM will continue to follow and assist as needed with discharge planning / needs. Director Drug: Flor Cheema DCPIA - Discharge Planning Initial Assessment Updated by [email or web address]: Flor Cheema on 03/30/19 5:30 pm * Is the patient Alert and Oriented? Yes * How many steps to enter\exit or inside your home? * PCP [facility] * [facility] * Preadmission Environment Home with Family * ADLs Independent * Equipment Cane * List name and contact numbers for known caregivers / representatives who currently or will assist patient after discharge: HAROON LACY - DAUGHTER- [phone] TRINIDAD LACY - - [phone] * Verbal permission to speak to the caregivers and representatives has been obtained from the patient. Yes * Community resources currently utilized None * Additional services required to return to the preadmission environment? No * Can the patient safely return to the preadmission environment? Yes * Has this patient been hospitalized within the prior 30 days at any hospital? No Coverage Notice Reviewer: [email or web address] Low Cheema Notice Issued Date-Time: 04/05/2019 15:40 Notice Type: IM Discharge Notice Notice Delivered To: Family Member Relationship to Patient: Spouse Supervisor Of Guidance And Testing Name: TRINIDAD LACY Delivery Method: HAND - Hand Delivered Dolly Days: Prior Verbal Notification: Recipient Understood Notice: Yes Recipient Signature: Yes Med Rec Note Co-signed by Attending: Coverage Notice Comment: Reviewer: [id number] - Flor Deni Notice Issued Date-Time: 04/05/2019 15:40 Notice Type: Patient Choice Letter Notice Delivered To: Family Member Relationship to Patient: Spouse Supervisor Of Guidance And Testing Name: TRINIDAD LACY Delivery Method: HAND - Hand Delivered Dolly Days: Prior Verbal Notification: Recipient Understood Notice: Yes Recipient Signature: Yes Med Rec Note Co-signed by Attending: Coverage Notice Comment: Last DP export: 04/05/19 2:39 Patient Name: NICOLÁS LACY Page 48742 at 1650 All edits/amendments must be made on the electronic document DICTATION DATE: 04/05/191649 MEAT MANAGER: JULIANN 04/05/191649 RPT#: [id number] DC DATE: STATUS: ADM IN [facility] [address] [place] [address] END OF REPORT
--- NOTE | 2019-04-05 17:21 | NUR ---
DISCHARGE INSTRUCTIONS WENT OVER WITH THE PT AND THE PTS . ALL APPOINTMENTS MADE. WAITING ON NEBULIZER MACHINE THEN DISCHARGE.
--- NOTE | 2019-04-05 17:38 | NUR ---
PT DISCHARGE VIA WC IN A STABLE CONDITION. NEBULIZER COMPANY DELIVERED NEBULIZER TO PT'S IN THE HOSPTIAL.
--- NOTE | 2019-04-05 17:41 | MORECARE ---
CASE MANAGEMENT DISCHARGE SUMMARY PATIENT: NICOLÁS LACY UNIT: [id number] ADM DATE: 03/28/19 AGE: 64 : 51 SEX: M ROOM/BED: [facility] AUTHOR: FELICIA ARREOLA PHYSICIAN: REFERRING PHYSICIAN: LORRAINE GROSSMAN MD DATE OF SERVICE: 04/05/19 Discharge Plan Patient Name: NICOLÁS LACY Facility: [facility]:[place] : 1955 Planned Disposition: Home Anticipated Discharge Date: Discharge Date: 04/05/2019 Expected LOS: Initial Reviewer: [email or web address] Initial Review Date: 03/30/2019 Generated: 04/05/19 6:41 pm Comments DCP- Discharge Planning Updated by [email or web address]: Flor Cheema on 04/05/19 3:[address] Patient Name: NICOLÁS LACY Encounter No: [id number] : 1955 Primary Insurance: MEDICARE A & B Anticipated DC Date: Planned Disposition: Home External Planned Provider: : D/C IMM SIGNED 04/05 @ 1540 . CM set up nebulizer with [employer] [phone] and [employer] will deliver Nebulizer to patients room. Nursing calling in [employer] to patient pharmacy for 2 days before his shipment is delivered per [employer]. Patient didn't qualify for home 02 walk test patient's 02 sat 89-92%. CM will continue to follow and assist as needed with discharge planning / needs. DCP follow-up note: Patient and family in agreement with discharge plan. No changes to plan. Case management will follow and assist as needed. Flor Cheema DCP- Discharge Planning Updated by [email or web address]: Taty Howell on 04/02/19 2:[address] Order received to check O2 requirements for home and for nebulizer with duoneb qid. CM received order for a walk test, spoke to Samuel in respiratory who stated the nurse reported the patient will not be ready for discharge for a few days. Samuel stated he will wait for closer [place] to do the walk test. Taty Howell RN,[facility] DCP- Discharge Planning Updated by [email or web address]: Flor Cheema on 03/30/19 4:[address] Patient Name: NICOLÁS LACY Admission Status: Elective Accout number: [id number] Admission Date: 03-28-2019 : 1955 Admission Diagnosis: Attending: LORRAINE GROSSMAN Current LOS: 2 Anticipated DC Date: Planned Disposition: Home Primary Insurance: MEDICARE A & B Discharge Planning Comments: CM met with patient at bedside after explaining CM role and obtaining verbal consent. Patient lives at home with his [place] where he is independent with his care and plans to return there upon discharge. Patient feels this would be a safe discharge. CM discussed availability / needs of home health and medical equipment. Patient denies any discharge needs at this time. Patient states he will have his family drive him home upon discharge. CM will continue to follow and assist as needed with discharge planning / needs. Health And Safety Technician: Flor Cheema DCPIA - Discharge Planning Initial Assessment Updated by [email or web address]: Flor Cheema on 03/30/19 5:30 pm * Is the patient Alert and Oriented? Yes * How many steps to enter\exit or inside your home? * PCP [facility] * [facility] * Preadmission Environment Home with Family * ADLs Independent * Equipment Cane * List name and contact numbers for known caregivers / representatives who currently or will assist patient after discharge: HAROON LACY - DAUGHTER- [phone] TRINIDAD LACY - - [phone] * Verbal permission to speak to the caregivers and representatives has been obtained from the patient. Yes * Community resources currently utilized None * Additional services required to return to the preadmission environment? No * Can the patient safely return to the preadmission environment? Yes * Has this patient been hospitalized within the prior 30 days at any hospital? No Coverage Notice Reviewer: [email or web address] Low Cheema Notice Issued Date-Time: 04/05/2019 15:40 Notice Type: IM Discharge Notice Notice Delivered To: Family Member Relationship to Patient: Spouse Industrial Engineering Intern Name: TRINIDAD LACY Delivery Method: HAND - Hand Delivered Dolly Days: Prior Verbal Notification: Recipient Understood Notice: Yes Recipient Signature: Yes Med Rec Note Co-signed by Attending: Coverage Notice Comment: Reviewer: [id number] Low Cheema Notice Issued Date-Time: 04/05/2019 15:40 Notice Type: Patient Choice Letter Notice Delivered To: Family Member Relationship to Patient: Spouse Industrial Engineering Intern Name: TRINIDAD LACY Delivery Method: HAND - Hand Delivered Dolly Days: Prior Verbal Notification: Recipient Understood Notice: Yes Recipient Signature: Yes Med Rec Note Co-signed by Attending: Coverage Notice Comment: Last DP export: 04/05/19 3:50 Patient Name: NICOLÁS LACY Page 97650 at 1741 All edits/amendments must be made on the electronic document DICTATION DATE: 04/05/191740 MICA SPREADER: JULIANN 04/05/191740 RPT#: [id number] DC DATE:04/05/19 STATUS: DIS IN [facility] [address] [place] [address] END OF REPORT
== END 2019-04-05 17:40 | disposition home or self-care (01) | DRG 236 ==
LOC: D.SDCHOLD 11:00 → D.CVICU 03-28 05:00 → D.SDCHOLD 03-28 05:00 → D.CVICU 03-28 10:54 → D.SDCHOLD 03-28 11:00 → D.CVICU 04-05 17:40
PROVIDERS: Internal Medicine Cardiovascular Disease; Internal Medicine Pulmonary Disease; ADMIT Thoracic Surgery (Cardiothoracic Vascular Surgery); ATTEND Thoracic Surgery (Cardiothoracic Vascular Surgery)
PROC: 021209W Bypass Coronary Artery, Three Arteries from Aorta with Autologous Venous Tissue, Open Approach (ICD-10-PCS; 2019-03-28)
PROC: 0BTJ0ZZ Resection of Left Lower Lung Lobe, Open Approach (ICD-10-PCS; 2019-03-28)
PROC: 0B5P0ZZ Destruction of Left Pleura, Open Approach (ICD-10-PCS; 2019-03-28)
PROC: 02100Z9 Bypass Coronary Artery, One Artery from Left Internal Mammary, Open Approach (ICD-10-PCS; principal; 2019-03-28 07:30)
DX: I25.10 Atherosclerotic heart disease of native coronary artery without angina pectoris (principal); J90 Pleural effusion, not elsewhere classified; J95.812 Postprocedural air leak; D62 Acute posthemorrhagic anemia; J98.11 Atelectasis; J43.0 Unilateral pulmonary emphysema [MacLeod's syndrome]; I10 Essential (primary) hypertension; E78.5 Hyperlipidemia, unspecified; G62.9 Polyneuropathy, unspecified; E55.9 Vitamin D deficiency, unspecified; R63.4 Abnormal weight loss; R53.81 Other malaise

== ENCOUNTER → 2019-11-04 10:16 | Outpatient (CLI) | payer MEDICARE, OTHER ==
[2019-03-30 11:25] VITALS: BMI 24.6
[~2019-11-04 10:16] MED LIST changes: +AMIODARONE HCL200 MG PO; +ASPIRIN EC81 M1 PO; +BENADRYL25 MG PO; +CENTRUM MEN'S1 EACH PO; +COLACE100 MG PO; +IPRAT-ALBUT 0.5-3 ML INH; +PERCOCET 5-3251 TAB PO; +SLEEP AID25 M1 PO
== END | disposition home or self-care (01) ==
LOC: D.RT 09-30 09:30 → D.CT 09-30 10:00 → D.RT 10-07 13:00 → D.CT 10-07 13:30 → D.RT 10:16
PROVIDERS: ATTEND Internal Medicine Pulmonary Disease
DX: J43.9 Emphysema, unspecified (principal); R91.8 Other nonspecific abnormal finding of lung field

== ENCOUNTER → 2019-12-22 13:33 | Outpatient (CLI) | payer MEDICARE, OTHER ==
[2019-03-30 11:25] VITALS: BMI 24.6
== END | disposition home or self-care (01) ==
LOC: D.RAD 13:33
PROVIDERS: ATTEND Internal Medicine Pulmonary Disease
DX: R06.00 Dyspnea, unspecified (principal)